=== PATIENT | female | born 1955 | race Caucasian/White ===

== ENCOUNTER → 2017-03-15 | Outpatient (CLI) | payer OTHER ==
[~2017-03-15] MED LIST: ATOR-54 PO; LEVO100T7 PO; LISI-461 PO; LORA0.5T12 PO; MELO15TA4 PO; PARO1TAB27 PO; TRIATAB3 PO; WARF6TAB PO; ZNTT/150 PO
[2017-03-15 12:54] LABS: CALCIUM 9.2 mg/dl (8.5-10.1)
[2017-03-15 13:09] LABS: ALT/SGPT 14 U/L (12-78); BLOOD UREA NITROGEN 16 mg/dl (7-18); BUN/CREATININE RATIO 13.3 (10-20); CARBON DIOXIDE 25 mmol/L (21-32); CHLORIDE 109 mmol/L (98-107); CHOLESTEROL 169 mg/dl (0-200); GLUCOSE 105 mg/dl (70-99); POTASSIUM 4.1 mmol/L (3.5-5.1); SODIUM 143 mmol/L (136-145); TRIGLYCERIDES 87 mg/dl (0-150); VERY LOW DENSITY LIPOPROT CALC 17 mg/dl
[2017-03-15 13:19] LABS: ALB/GLOB RATIO 0.9 (0.9-2); ALKALINE PHOSPHATASE 97 U/L (45-117); AST/SGOT 23 U/L (15-37); CHOLESTEROL/HDL RATIO 2.4; HDL CHOLESTEROL 71 mg/dl; LDL CHOLESTEROL CALCULATED 81 mg/dl
== END | disposition home or self-care (01) ==
LOC: C.LABBFT 08:12
PROVIDERS: ATTEND Physician Assistant Medical
DX: E03.9 Hypothyroidism, unspecified (principal); E78.5 Hyperlipidemia, unspecified

== ENCOUNTER → 2017-03-26 | Outpatient (CLI) | payer OTHER ==
--- NOTE | 2017-03-26 15:02 | DIAGNOSTIC IMAGING REPORT ---
ULTRASOUND OF THE THYROID GLAND CLINICAL HISTORY: Abnormal physical examination. COMPARISON STUDY: No priors. TECHNIQUE: Real-time, grayscale, and color flow sonography of the thyroid gland is performed utilizing a high-frequency linear transducer. Images are reviewed in the transverse and longitudinal planes. FINDINGS: Right lobe: The right lobe of the thyroid gland is atrophic and heterogeneous in echotexture, measuring 4.4 x 1.4 x 1.3 cm. Left lobe: The left lobe of the thyroid gland is atrophic and heterogeneous in echotexture, measuring 3.7 x 1.3 x 0.9 cm. Isthmus: The thyroid isthmus is normal in appearance and measures 0.2 cm in AP diameter. IMPRESSION: The thyroid gland is atrophic and heterogeneous in echotexture. This suggests the sequelae of previous thyroiditis. Correlation with clinical findings and serum thyroid function studies will be required. Electronically signed by: Pako Medrano M.D. 03/26/2017 3:00 PM Dictated Date/Time: 03/26/2017 2:59 PM
== END | disposition home or self-care (01) ==
LOC: C.ULTR 14:14
PROVIDERS: ATTEND Internal Medicine
DX: R94.6 Abnormal results of thyroid function studies (principal)

== ENCOUNTER → 2017-06-21 | Outpatient (CLI) | payer OTHER | END | disposition home or self-care (01) | LOC: C.PAPS 09:07 | PROVIDERS: ATTEND Obstetrics & Gynecology | DX: Z12.4 Encounter for screening for malignant neoplasm of cervix (principal) ==

== ENCOUNTER → 2017-10-11 | Outpatient (CLI) | payer OTHER ==
--- NOTE | 2017-10-12 15:07 | MAMMOGRAPHY REPORT ---
BILATERAL DIGITAL SCREENING MAMMOGRAM TOMOSYNTHESIS WITH CAD: 10/11/2017 CLINICAL HISTORY: Routine screening. Patient has no complaints. TECHNIQUE: Breast tomosynthesis in addition to standard 2D mammography was performed. Current study was also evaluated with a Computer Aided Detection (CAD) system. COMPARISON: Comparison is made to exams dated: 08/04/2015 mammogram, 10/15/2013 mammogram, 09/18/2012 mammogram, 09/14/2011 mammogram, 08/30/2010 mammogram, and 08/18/2009 mammogram - [facility]. BREAST COMPOSITION: There are scattered areas of fibroglandular density in both breasts. FINDINGS: No suspicious masses, calcifications, or areas of architectural distortion are noted in ei ther breast. There has been no significant interval change compared to prior exams. IMPRESSION: ACR BI-RADS CATEGORY 1: NEGATIVE There is no mammographic evidence of malignancy. A 1 year screening mammogram is recommended. The pa tient will receive written notification of the results. Approximately 10% of breast cancers are not detected with mammography. A negative mammographic report should not delay biopsy if a clinically suggestive mass is present. Marjan Carrillo M.D. /:10/11/2017 15:17:10 [employer]: Kera AYALA(Eder)(Freddy), [facility] letter sent: Normal 1/2 BI-RADS Code: ACR BI-RADS Category 1: Negative
== END | disposition home or self-care (01) ==
LOC: C.MAMM 14:48
PROVIDERS: ATTEND Obstetrics & Gynecology
DX: Z12.31 Encounter for screening mammogram for malignant neoplasm of breast (principal)

== ENCOUNTER → 2017-10-12 | Outpatient (CLI) | payer OTHER ==
[2017-10-12 12:21] LABS: BASO % 0.6 %; BASO ABS # 0.03 K/uL (0-0.2); EOS % 2.3 %; EOS ABS # 0.11 K/uL (0-0.5); HEMATOCRIT 41.6 % (37-47); HEMOGLOBIN 13.5 g/dL (12.0-16.0); LYMPH % 38.5 %; LYMPH ABS # 1.81 K/uL (1.2-3.4); MEAN CELL VOLUME 92.4 fL (80-100); MEAN CORPUSCULAR HGB CONC 32.5 g/dl (32-36); MEAN PLATELET VOLUME 11.2 fL (7.4-10.4); MONO % 8.7 %; MONO ABS # 0.41 K/uL (0.11-0.59); NEUT % 49.9 %; NEUT ABS # 2.34 K/uL (1.4-6.5); PLATELET COUNT 250 K/uL (130-400); RED CELL DISTRIBUTION WIDTH CV 13.5 % (11.5-14.5); RED CELL DISTRIBUTION WIDTH SD 45.7 fL (36.4-46.3)
[2017-10-12 12:33] LABS: BLOOD UREA NITROGEN 15 mg/dl (7-18); CALCIUM 9.3 mg/dl (8.5-10.1); CARBON DIOXIDE 29 mmol/L (21-32); CREATININE 1.12 mg/dl (0.60-1.20); GLUCOSE 92 mg/dl (70-99); SODIUM 140 mmol/L (136-145)
== END | disposition home or self-care (01) ==
LOC: C.LABBFT 07:51
PROVIDERS: ATTEND Internal Medicine
DX: I10 Essential (primary) hypertension (principal); R73.9 Hyperglycemia, unspecified; E03.9 Hypothyroidism, unspecified

== ENCOUNTER 2020-03-28 10:15 | Inpatient (IN) ==
[2020-03-28] MEDS ORDERED: HYDROmorphone INJ 0.5 MG/0.5 ML SYR IV STA ×3 (10:37→11:13)
[2020-03-28] MEDS ORDERED: ONDANSETRON INJ 2 MG/ML 2 ML VIAL IV STA (10:38)
--- NOTE | 2020-03-28 11:13 | XRay Report ---
RIGHT SHOULDER 2 VIEWS HISTORY: Right shoulder pain. trauma COMPARISON: None. FINDINGS: Anterior shoulder dislocation. Suspect a small Hill-Sachs impaction fracture. The glenoid a ppears intact. The right clavicle is also intact. Soft tissues are unremarkable. No radiopaque foreig n bodies. IMPRESSION: Right anterior shoulder dislocation. Probable small Hill-Sachs impaction fracture. ACT 112: Negative or not required by law. Electronically signed by: Sanjeev Stallings M.D. 03/28/2020 11:12 AM
[2020-03-28] MEDS ORDERED: LORazepam 0.5 MG/1 ML VIAL IV STA (11:18)
[2020-03-28] MEDS ORDERED: LORazepam 2 MG/4 ML VIAL ONE (11:19)
[2020-03-28 11:57] LABS: INR 1.6 (0.9-1.1); Prothrombin Time 16.3 Seconds (9.0-12.0)
[2020-03-28] MEDS ORDERED: HYDROmorphone INJ 1 MG/ML SYRINGE IV STA (12:19)
--- NOTE | 2020-03-28 12:22 | XRay Report ---
RIGHT ELBOW 3 VIEWS HISTORY: Right elbow pain. trauma COMPARISON: None. FINDINGS: There is no fracture or dislocation. Soft tissues are unremarkable. No elbow effusion. No r adiopaque foreign bodies. IMPRESSION: No fractures. ACT 112: Negative or not required by law. Electronically signed by: Sanjeev Stallings M.D. 03/28/2020 12:21 PM
--- NOTE | 2020-03-28 12:23 | XRay Report ---
XR shoulder RT min 2V routine CLINICAL HISTORY: Right shoulder dislocation. Follow-up. COMPARISON STUDY: Right shoulder 03/20/2020. FINDINGS: Persistent right anterior shoulder dislocation with a Hill-Sachs impaction fracture. The gl enoid appears intact. The right clavicle is also intact. IMPRESSION: No change in the right anterior shoulder dislocation with a Hill-Sachs impaction fractur e. ACT 112: Negative or not required by law. Electronically signed by: Sanjeev Stallings M.D. 03/28/2020 12:21 PM
--- NOTE | 2020-03-28 12:26 | XRay Report ---
XR ribs RT min 3V w CXR1V CLINICAL HISTORY: fall.right-sided rib pain. COMPARISON STUDY: Chest 9 20 x 13. FINDINGS: There is again noted a right anterior shoulder dislocation. The lungs are clear. No pleural effusions. No pneumothorax. The heart is normal in size. Mildly tortuous thoracic aorta. Nondisplace d right anterior sixth and seventh rib fractures. Right anterior shoulder dislocation again noted. IMPRESSION: 1. Nondisplaced right anterior sixth and seventh rib fractures. No pneumothorax. 2. Right anterior shoulder dislocation. ACT 112: Negative or not required by law. Electronically signed by: Sanjeev Stallings M.D. 03/28/2020 12:25 PM
--- NOTE | 2020-03-28 13:12 | XRay Report ---
XR shoulder RT min 2V routine CLINICAL HISTORY: dislocation reduction COMPARISON STUDY: Right shoulder 03/28/2020. FINDINGS: Persistent right anterior shoulder dislocation with a Hill-Sachs impaction fracture. The gl enoid appears intact. The right clavicle is also intact. IMPRESSION: No change in the right anterior shoulder dislocation with a Hill-Sachs impaction fractur e. ACT 112: Negative or not required by law. Electronically signed by: Sanjeev Stallings M.D. 03/28/2020 1:11 PM No change from XR shoulder RT min 2V routine with report dated 03/28/2020 12:21 PM.
--- NOTE | 2020-03-28 13:44 | CT Scan Report ---
RIGHT SHOULDER CT CT DOSE: 1026.51 mGy.cm HISTORY: R shoulder dislocation, unable to reduce. TECHNIQUE: Multiaxial CT images of the right shoulder were performed and reformatted in the sagittal and coronal plane without the use of contrast. A dose lowering technique was utilized adhering to th e principles of ALARA. COMPARISON: Right shoulder 03/20/2020. FINDINGS: Persistent right anterior shoulder dislocation with a Hill-Sachs impaction fracture. The an terior glenoid is located within the impaction fracture and likely inhibits reduction. A few tiny bon y fragments adjacent to the humeral head. Glenoid appears intact. No fractures within the right clavi sylvester. Small moderate lipohemarthrosis at the glenohumeral joint. A 3 mm nodule within the right upper lobe on image 255. IMPRESSION: 1. Persistent right anterior shoulder dislocation with a Hill-Sachs impaction fracture. The anterior glenoid is located within the impaction fracture and likely inhibit reduction. 2. Small to moderate lipohemarthrosis of the glenohumeral joint. 3. A 3 mm right upper lobe nodule. Please refer to below summary of Fleischner criteria recommendations for follow-up of incidental CT n odules (Vandana Wagner, Guidelines for management of small pulmonary nodules detected on CT scans: A sta tement from the Fleischner Society, Radiology 237: [phone].) SOLID NODULES Solitary nodule size: <6 mm * Low risk patients: no follow-up needed * high risk patients: optional CT at 12 months Solitary nodule size: 6-8 mm * Low risk patients: follow-up at 6-12 months, then consider further follow-up at 18-24 months * high risk patients: initial follow-up CT at 6-12 months and then at 18-24 months if no change Solitary nodule size: >8 mm * either low or high risk patients - consider follow-up CT at 3 months, and/or CT-PET, and/or biopsy Multiple nodules size: <6 mm * Low risk patients: no routine follow-up * high risk patients: optional CT at 12 months Multiple nodules size: 6-8 mm * Low risk patients: follow-up at 3-6 months, then consider further follow-up at 18-24 months * high risk patients: follow-up at 3-6 months, then at 18-24 months if no change Multiple nodules size: >8 mm * Low risk patients: follow-up at 3-6 months, then consider further follow-up at 18-24 months * high risk patients: follow-up at 3-6 months, then at 18-24 months if no change Note: newly detected indeterminate nodule in persons 35 years of age or older. * Low risk patients: minimal or absent history of smoking and/or other known risk factors * high risk patients: history of smoking or of other known risk factors (e.g. first degree relative with lung cancer, or exposure to asbestos, radon, uranium) * if a nodule up to 8 mm is partly solid or is ground glass further follow-up is required after 24 m onths to exclude possible slow growing adenocarcinoma (JOSE G) SUBSOLID NODULES Solitary pure ground-glass nodule * nodule size <6 mm - no CT follow-up required * nodule size >=6 mm - follow-up CT at 6-12 months, then every 2 years until 5 years Solitary part-solid nodule * nodule size <6 mm - no CT follow-up required * nodule size >=6 mm - follow-up CT at 3-6 months. If unchanged, and solid component remains <6 mm, then annual follow-up for 5 years Multiple subsolid nodules * nodule size <6 mm - follow-up CT at 3-6 months, consider further follow-up at 2 and 4 years if sta ble * nodule size >=6 mm - follow-up CT at 3-6 months, subsequent management based on the most suspiciou s nodule(s) ACT 112: Negative or not required by law. Electronically signed by: Sanjeev Stallings M.D. 03/28/2020 1:43 PM
[2020-03-28] MEDS ORDERED: HYDROmorphone INJ 0.5 MG/0.5 ML SYR IV PRN ×2 (14:02→20:34)
[2020-03-28] MEDS ORDERED: PROPOFOL IV EMULSION 10 MG/ML 20 ML VIAL IV STA (14:19)
[2020-03-28] MEDS ORDERED: SODIUM CHLORIDE 0.9% 1000ML 1,000 ML IV SCH (14:30)
--- NOTE | 2020-03-28 16:09 | Emergency Department Note ---
Pre Sedation Assessment Vital Signs Temp Pulse Resp BP Pulse Ox 03/28/20 14:36 96 03/28/20 14:00 93 03/28/20 13:01 58 L 98 03/28/20 13:00 60 15 143/86 H 96 03/28/20 12:34 125/71 97 03/28/20 12:26 65 19 03/28/20 11:30 56 L 18 95 03/28/20 11:26 55 L 10 L 03/28/20 11:25 55 L 11 L 131/74 93 03/28/20 10:26 58 L 24 160/112 H 98 03/28/20 10:20 36.9 C 87 36 H 97 Pre-Sedation Airway Assessment Smoking Status: Never smoker Notes The planned sedation has been discussed with the patient. Informed Consent was obtained. I have identified the patient, determined the appropriateness of sedation and have assessed the patient immediately prior to the procedure. All medicine(s) and interventions are by my order.
--- NOTE | 2020-03-28 16:12 | Emergency Department Note ---
Post Sedation Assessment Vital Signs Temp Pulse Resp BP Pulse Ox 03/28/20 14:36 96 03/28/20 14:00 93 03/28/20 13:01 58 L 98 03/28/20 13:00 60 15 143/86 H 96 03/28/20 12:34 125/71 97 03/28/20 12:26 65 19 03/28/20 11:30 56 L 18 95 03/28/20 11:26 55 L 10 L 03/28/20 11:25 55 L 11 L 131/74 93 03/28/20 10:26 58 L 24 160/112 H 98 03/28/20 10:20 36.9 C 87 36 H 97 Post Sedation Plan On clinical assessment, the patient appears to have tolerated the sedation without complications. Patient is recovering as anticipated. Patient will continue to be monitored by nursing and may be discharged when sedation discharge criteria are met per below protocol. Sedation Data Time Out Team Members Agree on the Following: Correct Patient, Correct Procedure, Correct Site-Side and Allergies Verified Site Marking Visible after Draping: Yes Team Agrees: Yes Time Out Performed Time: 15:47 Sedation Times Sedation Start Date: 03/28/20 Sedation Start Time: 15:47 Sedation End Date: 03/28/20 Sedation End Time: 16:00 Total Sedation Time: 13 Procedure Times Procedure Start Time:: 15:48 Procedure End Time: 15:52 Specimens Specimens Obtained: No
[2020-03-28] MEDS ORDERED: ACETAMINOPHEN 1000 MG/100 ML IV IV STA (16:50)
--- NOTE | 2020-03-28 16:58 | Emergency Department Note ---
ED Visit Note ED procedure: Closed reduction right shoulder, 1546 hrs Indication: Dislocation right shoulder Consent verbal and written consent obtained from the patient Anesthesia: Sedation provided by Dr. Granda see her accompanying documentation X-ray and CT of the shoulders were reviewed showing Hill-Sachs impaction fracture with persistent dislocation. Patient is neurovascular intact in the right upper extremity with no numbness and a good radial pulse. Patient is right-handed. Discussed with the patient proceed with close reduction with sedation in the emergency department discussed risks and benefits. Discussed possibility for neurovascular injury or fracture. Consent was completed. Sedation was performed Dr. Granda and see her accompanying documentation. Patient was sedated and had relaxation of muscles. Fracture was performed on the right upper extremity with some external rotation with a large audible clunk would appear to be some improvement of anatomical alignment. Patient's shoulder seem to be freely ranging at this point. Patient was placed into a sling. Sedation was completed. Radial pulse was intact. Sensation intact. Post sedation the patient still had pain in her right shoulder and repeat x-ray showed persistent dislocation. Dr. Granda discussed this with orthopedics for further care and likely OR reduction. : Anterior dislocation of right shoulder Qualifiers: Encounter type: initial encounter Qualified Code(s): S43.014A - Anterior dislocation of right humerus, initial encounter
--- NOTE | 2020-03-28 17:09 | XRay Report ---
XR shoulder RT min 2V routine CLINICAL HISTORY: post reduction w sedation COMPARISON STUDY: Right shoulder 03/28/2020. FINDINGS: Persistent right anterior shoulder dislocation with a Hill-Sachs impaction fracture. The gl enoid appears intact. The right clavicle is also intact. IMPRESSION: No change in the right anterior shoulder dislocation with a Hill-Sachs impaction fractur e. ACT 112: Negative or not required by law. Electronically signed by: Sanjeev Stallings M.D. 03/28/2020 5:08 PM No change from XR shoulder RT min 2V routine with report dated 03/28/2020 12:21 PM. No change from XR shoulder RT min 2V routine with report dated 03/28/2020 1:11 PM.
--- NOTE | 2020-03-28 17:47 | Emergency Department Note ---
History of Present Illness General Chief complaint: Shoulder Pain Stated complaint: FALL - RT SHOULDER INJURY Time Seen by Provider: 03/28/20 10:30 Source: patient and RN notes reviewed Mode of arrival: ambulatory Limitations: no limitations History of Present Illness Provider complaint: Right shoulder pain Maximum Pain Intensity: 4 This patient is a 64-year-old female who presents emergency department with complaints of right shoulder pain that happened after falling while mowing the grass. Patient states she fell onto an outstretched arm and heard a "crack." Patient states she felt pain immediately. She has very little movement of the right shoulder without significant discomfort. She states she can move her fingers and has sensation in the hand. She denies hitting her head or having neck pain. She does take Coumadin for history of PE. Home Medications Home Medications Medication Instructions Recorded Confirmed Type lancets 33 gauge #100 ea 03/06/19 10/30/19 Rx OneTouch Verio test strips #100 ea NS 07/02/19 10/30/19 Rx metformin 500 mg tablet,extended 500 mg PO BID 90 Days #180 tab 02/09/20 03/28/20 Rx release 24 hr Ranitidine 150mg Tablet 150 mg PO BID 03/28/20 03/28/20 History atorvastatin 20 mg PO QAM 03/28/20 03/28/20 History cholecalciferol (vitamin D3) 0 mcg PO QAM 03/28/20 03/28/20 History [Vitamin D3] fluoxetine 40 mg PO QAM 03/28/20 03/28/20 History glucos sul [id number]-Mn 1 cap PO QAM 03/28/20 03/28/20 History [Glucosamine Chondroitin] levothyroxine 88 mcg PO QAM 03/28/20 03/28/20 History lisinopril 20 mg PO QAM 03/28/20 03/28/20 History meloxicam 15 mg PO QAM 03/28/20 03/28/20 History multivitamin 1 tab PO QAM 03/28/20 03/28/20 History triamterene-hydrochlorothiazid 1 cap PO QAM 03/28/20 03/28/20 History warfarin 6 mg PO HS 03/28/20 03/28/20 History Allergies Allergy/AdvReac Type Severity Reaction Status Date / Time No Known Allergies Allergy Unknown Verified 03/28/20 11:33 Past Med/Surg History Medical History Anticoagulated on Coumadin (Acute) Anxiety (Acute) Arthritis (Acute) Colon polyps (Acute) Depression (Acute) Diverticulitis (Acute) Edema (Acute) Generalized osteoarthritis (Acute) Genital warts (Acute) Hematuria, microscopic (Acute) Hyperglycemia (Acute) Hyperlipidemia (Chronic) Hypothyroidism (Chronic) Insomnia (Acute) Internal hemorrhoids (Acute) Kidney stones (Acute) Lipoma of arm (Acute) Morbid obesity (Acute) Need for SBE (subacute bacterial endocarditis) prophylaxis (Acute) Prediabetes (Chronic) Surgical History History of appendectomy History of foot surgery History of tonsillectomy History of total knee arthroplasty Status post incision and drainage Family History Mother Diabetes Hypertension COPD (chronic obstructive pulmonary disease) Skin cancer Sister Diabetes Hypertension Skin cancer Father Skin cancer Grandfather Cardiac disorder Brother Skin cancer Denies family history of Ovarian cancer Breast cancer Colorectal cancer Social History Preferred Language: Cymro Communication Ability: Effective marital status: Feels Safe at Home: Yes Smoking Status: Never smoker Do You Dip or Chew Tobacco: No ; Second Hand Exposure: No ; Hx Alcohol Use: Yes Hx Substance Use: No Review of Systems See HPI for pertinent positives & negatives. and A total of 10 systems reviewed and were otherwise negative Physical Exam Vital Signs Vital Signs - 24 hr 03/28/20 10:20 03/28/20 10:26 03/28/20 11:25 Temperature 36.9 C Temperature Source Oral Pulse Rate 87 58 L 55 L Pulse Rate from SpO2 Sensor 57 L 54 L Pulse Rhythm Regular Respiratory Rate 36 H 24 11 L Respiratory Effort / Characteristics Moaning Respiratory Depth Shallow Respiratory Pattern Tachypnea Blood Pressure 160/112 H 131/74 Blood Pressure Mean 136 79 Pulse Oximetry 97 98 93 Oxygen Delivery Method Room Air Oxygen Flow Rate Sepsis Recent Fever Within 48 Hours No Sepsis Action Taken by Nursing No Action Required End-Tidal CO2 03/28/20 11:26 03/28/20 11:30 03/28/20 12:26 Temperature Temperature Source Pulse Rate 55 L 56 L 65 Pulse Rate from SpO2 Sensor 55 L 56 L Pulse Rhythm Respiratory Rate 10 L 18 19 Respiratory Effort / Characteristics Respiratory Depth Respiratory Pattern Blood Pressure Blood Pressure Mean Pulse Oximetry 95 Oxygen Delivery Method Room Air Oxygen Flow Rate Sepsis Recent Fever Within 48 Hours Sepsis Action Taken by Nursing End-Tidal CO2 03/28/20 12:30 03/28/20 12:34 03/28/20 13:00 Temperature Temperature Source Pulse Rate 60 Pulse Rate from SpO2 Sensor 65 64 60 Pulse Rhythm Respiratory Rate 15 Respiratory Effort / Characteristics Respiratory Depth Respiratory Pattern Blood Pressure 125/71 143/86 H Blood Pressure Mean 74 112 Pulse Oximetry 97 96 Oxygen Delivery Method Oxygen Flow Rate Sepsis Recent Fever Within 48 Hours Sepsis Action Taken by Nursing End-Tidal CO2 03/28/20 13:01 03/28/20 13:40 03/28/20 14:00 Temperature Temperature Source Pulse Rate 58 L Pulse Rate from SpO2 Sensor 58 L 60 63 Pulse Rhythm Respiratory Rate Respiratory Effort / Characteristics Respiratory Depth Respiratory Pattern Blood Pressure Blood Pressure Mean Pulse Oximetry 98 93 Oxygen Delivery Method Oxygen Flow Rate Sepsis Recent Fever Within 48 Hours Sepsis Action Taken by Nursing End-Tidal CO2 03/28/20 14:36 03/28/20 14:38 03/28/20 15:19 Temperature Temperature Source Pulse Rate 60 Pulse Rate from SpO2 Sensor 57 L 57 L Pulse Rhythm Respiratory Rate Respiratory Effort / Characteristics Respiratory Depth Respiratory Pattern Blood Pressure 138/75 Blood Pressure Mean 107 Pulse Oximetry 96 88 L Oxygen Delivery Method Nasal Cannula Room Air Oxygen Flow Rate 2 Sepsis Recent Fever Within 48 Hours Sepsis Action Taken by Nursing End-Tidal CO2 36 03/28/20 15:30 03/28/20 15:47 03/28/20 15:50 Temperature Temperature Source Pulse Rate 60 61 61 Pulse Rate from SpO2 Sensor 59 L 62 62 Pulse Rhythm Respiratory Rate Respiratory Effort / Characteristics Respiratory Depth Respiratory Pattern Blood Pressure 129/55 L 156/80 H 115/84 Blood Pressure Mean 95 92 95 Pulse Oximetry 97 97 85 L Oxygen Delivery Method Oxygen Flow Rate Sepsis Recent Fever Within 48 Hours Sepsis Action Taken by Nursing End-Tidal CO2 27 34 34 03/28/20 15:53 03/28/20 15:55 03/28/20 16:00 Temperature Temperature Source Pulse Rate 58 L 59 L 59 L Pulse Rate from SpO2 Sensor 58 L 59 L 61 Pulse Rhythm Respiratory Rate Respiratory Effort / Characteristics Respiratory Depth Respiratory Pattern Blood Pressure 133/85 149/78 H Blood Pressure Mean 106 83 Pulse Oximetry 99 100 100 Oxygen Delivery Method Oxygen Flow Rate Sepsis Recent Fever Within 48 Hours Sepsis Action Taken by Nursing End-Tidal CO2 11 6 39 03/28/20 16:01 03/28/20 16:05 03/28/20 16:10 Temperature Temperature Source Pulse Rate 60 60 64 Pulse Rate from SpO2 Sensor 59 L 60 68 Pulse Rhythm Respiratory Rate Respiratory Effort / Characteristics Respiratory Depth Respiratory Pattern Blood Pressure 147/96 H 135/83 140/76 Blood Pressure Mean 104 99 87 Pulse Oximetry 98 98 100 Oxygen Delivery Method Oxygen Flow Rate Sepsis Recent Fever Within 48 Hours Sepsis Action Taken by Nursing End-Tidal CO2 32 36 34 03/28/20 16:15 03/28/20 16:20 03/28/20 16:25 Temperature Temperature Source Pulse Rate 66 63 64 Pulse Rate from SpO2 Sensor 61 62 64 Pulse Rhythm Respiratory Rate Respiratory Effort / Characteristics Respiratory Depth Respiratory Pattern Blood Pressure 120/85 149/78 H 164/80 H Blood Pressure Mean 111 99 124 Pulse Oximetry 93 100 Oxygen Delivery Method Oxygen Flow Rate Sepsis Recent Fever Within 48 Hours Sepsis Action Taken by Nursing End-Tidal CO2 23 21 38 03/28/20 16:30 03/28/20 16:36 03/28/20 16:40 Temperature Temperature Source Pulse Rate 60 60 Pulse Rate from SpO2 Sensor 61 60 Pulse Rhythm Respiratory Rate Respiratory Effort / Characteristics Respiratory Depth Respiratory Pattern Blood Pressure 154/83 H 146/86 H 164/81 H Blood Pressure Mean 98 99 110 Pulse Oximetry 100 99 Oxygen Delivery Method Oxygen Flow Rate Sepsis Recent Fever Within 48 Hours Sepsis Action Taken by Nursing End-Tidal CO2 38 13 34 03/28/20 16:45 03/28/20 16:51 03/28/20 16:56 Temperature Temperature Source Pulse Rate 67 64 70 Pulse Rate from SpO2 Sensor Pulse Rhythm Respiratory Rate Respiratory Effort / Characteristics Respiratory Depth Respiratory Pattern Blood Pressure 146/79 H 116/73 152/74 H Blood Pressure Mean 98 84 85 Pulse Oximetry Oxygen Delivery Method Oxygen Flow Rate Sepsis Recent Fever Within 48 Hours Sepsis Action Taken by Nursing End-Tidal CO2 22 23 27 03/28/20 16:57 03/28/20 17:00 03/28/20 17:05 Temperature Temperature Source Pulse Rate 66 70 64 Pulse Rate from SpO2 Sensor Pulse Rhythm Respiratory Rate Respiratory Effort / Characteristics Respiratory Depth Respiratory Pattern Blood Pressure 152/74 H 151/79 H Blood Pressure Mean 85 92 Pulse Oximetry Oxygen Delivery Method Oxygen Flow Rate Sepsis Recent Fever Within 48 Hours Sepsis Action Taken by Nursing End-Tidal CO2 19 16 03/28/20 17:10 03/28/20 17:15 03/28/20 17:20 Temperature Temperature Source Pulse Rate 60 62 63 Pulse Rate from SpO2 Sensor Pulse Rhythm Respiratory Rate Respiratory Effort / Characteristics Respiratory Depth Respiratory Pattern Blood Pressure 142/78 H 142/113 H 130/59 L Blood Pressure Mean 89 119 76 Pulse Oximetry Oxygen Delivery Method Oxygen Flow Rate Sepsis Recent Fever Within 48 Hours Sepsis Action Taken by Nursing End-Tidal CO2 03/28/20 17:25 03/28/20 17:31 03/28/20 17:35 Temperature Temperature Source Pulse Rate 65 68 62 Pulse Rate from SpO2 Sensor Pulse Rhythm Respiratory Rate Respiratory Effort / Characteristics Respiratory Depth Respiratory Pattern Blood Pressure 129/56 L 99/57 L 122/63 Blood Pressure Mean 68 67 72 Pulse Oximetry Oxygen Delivery Method Oxygen Flow Rate Sepsis Recent Fever Within 48 Hours Sepsis Action Taken by Nursing End-Tidal CO2 03/28/20 17:40 03/28/20 17:46 03/28/20 17:51 Temperature Temperature Source Pulse Rate 58 L 66 62 Pulse Rate from SpO2 Sensor Pulse Rhythm Respiratory Rate Respiratory Effort / Characteristics Respiratory Depth Respiratory Pattern Blood Pressure 118/61 102/60 135/61 Blood Pressure Mean 83 69 88 Pulse Oximetry Oxygen Delivery Method Oxygen Flow Rate Sepsis Recent Fever Within 48 Hours Sepsis Action Taken by Nursing End-Tidal CO2 Vital signs reviewed. General: Generally well-appearing 64-year-old female, in significant distress. HEENT: No scleral icterus, PERRLA, neck supple. Atraumatic. Cardiovascular: Regular rate and rhythm, no extra sounds. Pulmonary: Clear to auscultation bilaterally, normal work of breathing. Abdomen: Soft, nontender, nondistended, positive bowel sounds. Musculoskeletal: Obese upper extremities however tender to palpation over the right shoulder with apparent acromial humeral defect.. Neurologic: Patient awake alert and oriented x 3 Skin: Warm, dry, no rash Procedures Orthopedic Joint Reduction Joint #1: Time Out Performed: Yes Side: right Joint Reduction Location: shoulder Analgesia: none (Dilaudid) Shoulder Technique Used (if applicable): scapula manipulation Technique used: direct manipulation Post-reduction neuro exam: intact Post-reduction vascular: intact Post Reduction X-Ray Obtained: Yes Post Reduction X-Ray Results: not reduced Patient Tolerated Procedure: well Joint #2: Time Out Performed: Yes Side: right Joint Reduction Location: shoulder Analgesia: none (Dilaudid) Shoulder Technique Used (if applicable): scapula manipulation Technique used: direct manipulation Post-reduction neuro exam: intact Post-reduction vascular: intact Post Reduction X-Ray Obtained: Yes Post Reduction X-Ray Results: not reduced Procedural Sedation Indication: fracture/dislocation reduction ASA Class: II Time of Last PO Intake: 09:00 Preparation: bank sales and service manager applied, pulse oximeter, capnometry used, supplemental O2 applied, suction/airway equipment at bedside and IV secured IV Propofol dose (mg): 75 Patient Tolerated Procedure: well Complications: hypoventilation Interventions: oxygen applied and airway repositioned Course Administered Medications Hydromorphone HCl (Dilaudid) 0.5 mg IV Q15M PRN PRN Reason: Pain Stop: 04/11/20 14:01 Last Admin: 03/28/20 14:13 Dose: 0.5 mg Documented by: [id number] Sodium Chloride (Nss 1000ml) 1,000 mls @ 100 mls/hr IV .Q10H VERENICE Stop: 03/29/20 00:29 Last Admin: 03/28/20 16:02 Dose: 100 mls/hr Documented by: [id number] Discontinued Medications Acetaminophen (Ofirmev) 1,000 mg IV NOW STA Stop: 03/28/20 16:51 Last Admin: 03/28/20 17:13 Dose: 1,000 mg Documented by: [id number] Hydromorphone HCl (Dilaudid) 0.5 mg IV NOW STA Stop: 03/28/20 10:38 Last Admin: 03/28/20 11:00 Dose: 0.5 mg Documented by: [id number] Hydromorphone HCl (Dilaudid) 0.5 mg IV NOW STA Stop: 03/28/20 11:08 Last Admin: 03/28/20 11:28 Dose: 0.5 mg Documented by: [id number] Hydromorphone HCl (Dilaudid) 0.5 mg IV NOW STA Stop: 03/28/20 11:14 Last Admin: 03/28/20 11:28 Dose: 0.5 mg Documented by: [id number] Hydromorphone HCl (Dilaudid) 1 mg IV NOW STA Stop: 03/28/20 12:20 Last Admin: 03/28/20 12:24 Dose: 1 mg Documented by: [id number] Lorazepam (Ativan) 0.5 mg in 1 mls @ 1 mls/min IV NOW STA Stop: 03/28/20 11:19 Last Admin: 03/28/20 11:28 Dose: 1 mls/min Documented by: [id number] Lorazepam (Ativan) Confirm Administered Dose 2 mg .ROUTE .STK-MED ONE Stop: 03/28/20 11:20 Last Admin: 03/28/20 11:29 Dose: Not Given Documented by: [id number] Ondansetron HCl (Zofran) 4 mg IV NOW STA Stop: 03/28/20 10:39 Last Admin: 03/28/20 11:00 Dose: 4 mg Documented by: [id number] Propofol (Diprivan) 200 mg IV NOW Stop: 03/28/20 14:20 Last Admin: 03/28/20 16:01 Dose: 75 mg Documented by: [id number] Cosigned by: [id number] Medical Decision Making Differential Diagnosis Differential diagnosis: Etiologies such as fracture, dislocation, neurovascular compromise, compartment syndrome, soft tissue injury, as well as others were entertained. Home Medications Current Medication List: was personally reviewed by me Laboratory Data Attestation: I reviewed the patient's lab results. Lab Results 03/28/20 Range/Units 11:37 PT 16.3 H (9.0-12.0) Seconds INR 1.6 H (0.9-1.1) Imaging Data Radiologist's Impression: RIGHT SHOULDER 2 VIEWS HISTORY: Right shoulder pain. trauma COMPARISON: None. FINDINGS: Anterior shoulder dislocation. Suspect a small Hill-Sachs impaction fracture. The glenoid appears intact. The right clavicle is also intact. Soft tissues are unremarkable. No radiopaque foreign bodies. IMPRESSION: Right anterior shoulder dislocation. Probable small Hill-Sachs impaction fracture. ACT 112: Negative or not required by law. Electronically signed by: Sanjeev Stallings M.D. 03/28/2020 11:12 AM Dictated: 03/28/20 1111 Transcribed: 03/28/20 1111 XR ribs RT min 3V w [id number] CLINICAL HISTORY: fall.right-sided rib pain. COMPARISON STUDY: Chest 9 20 x 13. FINDINGS: There is again noted a right anterior shoulder dislocation. The lungs are clear. No pleural effusions. No pneumothorax. The heart is normal in size. Mildly tortuous thoracic aorta. Nondisplaced right anterior sixth and seventh rib fractures. Right anterior shoulder dislocation again noted. IMPRESSION: 1. Nondisplaced right anterior sixth and seventh rib fractures. No pneumothorax. 2. Right anterior shoulder dislocation. ACT 112: Negative or not required by law. Electronically signed by: Sanjeev Stallings M.D. 03/28/2020 12:25 PM Dictated: 03/28/20 1222 Transcribed: 03/28/20 1222 XR shoulder RT min 2V routine CLINICAL HISTORY: Right shoulder dislocation. Follow-up. COMPARISON STUDY: Right shoulder 03/20/2020. FINDINGS: Persistent right anterior shoulder dislocation with a Hill-Sachs impaction fracture. The glenoid appears intact. The right clavicle is also intact. IMPRESSION: No change in the right anterior shoulder dislocation with a Hill- Sachs impaction fracture. ACT 112: Negative or not required by law. Electronically signed by: Sanjeev Stallings M.D. 03/28/2020 12:21 PM Dictated: 03/28/20 1221 Transcribed: 03/28/20 1221 RIGHT ELBOW 3 VIEWS HISTORY: Right elbow pain. trauma COMPARISON: None. FINDINGS: There is no fracture or dislocation. Soft tissues are unremarkable. No elbow effusion. No radiopaque foreign bodies. IMPRESSION: No fractures. ACT 112: Negative or not required by law. Electronically signed by: Sanjeev Stallings M.D. 03/28/2020 12:21 PM Dictated: 03/28/20 1220 Transcribed: 03/28/20 1220 XR shoulder RT min 2V routine CLINICAL HISTORY: dislocation reduction COMPARISON STUDY: Right shoulder 03/28/2020. FINDINGS: Persistent right anterior shoulder dislocation with a Hill-Sachs impaction fracture. The glenoid appears intact. The right clavicle is also intact. IMPRESSION: No change in the right anterior shoulder dislocation with a Hill- Sachs impaction fracture. ACT 112: Negative or not required by law. Electronically signed by: Sanjeev Stallings M.D. 03/28/2020 1:11 PM No change from XR shoulder RT min 2V routine with report dated 03/28/2020 12:21 PM. Dictated: 03/28/20 1310 Transcribed: 03/28/[address] DOSE: 1026.51 mGy.cm HISTORY: R shoulder dislocation, unable to reduce. TECHNIQUE: Multiaxial CT images of the right shoulder were performed and reformatted in the sagittal and coronal plane without the use of contrast. A dose lowering technique was utilized adhering to the principles of ALARA. COMPARISON: Right shoulder 03/20/2020. FINDINGS: Persistent right anterior shoulder dislocation with a Hill-Sachs impaction fracture. The anterior glenoid is located within the impaction fracture and likely inhibits reduction. A few tiny bony fragments adjacent to the humeral head. Glenoid appears intact. No fractures within the right clavicle. Small moderate lipohemarthrosis at the glenohumeral joint. A 3 mm nodule within the right upper lobe on image 255. IMPRESSION: 1. Persistent right anterior shoulder dislocation with a Hill-Sachs impaction fracture. The anterior glenoid is located within the impaction fracture and likely inhibit reduction. 2. Small to moderate lipohemarthrosis of the glenohumeral joint. 3. A 3 mm right upper lobe nodule. ACT 112: Negative or not required by law. XR shoulder RT min 2V routine CLINICAL HISTORY: post reduction w sedation COMPARISON STUDY: Right shoulder 03/28/2020. FINDINGS: Persistent right anterior shoulder dislocation with a Hill-Sachs impaction fracture. The glenoid appears intact. The right clavicle is also intact. IMPRESSION: No change in the right anterior shoulder dislocation with a Hill- Sachs impaction fracture. ACT 112: Negative or not required by law. Electronically signed by: Sanjeev Stallings M.D. 03/28/2020 5:08 PM No change from XR shoulder RT min 2V routine with report dated 03/28/2020 12:21 PM. No change from XR shoulder RT min 2V routine with report dated 03/28/2020 1:11 PM. Dictated: 03/28/201706 Transcribed: 03/28/201706 ECG Data Attestation: I personally reviewed and interpreted this ECG as follows: Indication: + other (presedation) Rate (beats per minute): 63 Rhythm: + normal sinus ECG Intervals/blocks: + Prolonged QT (QTc 483) ECG Findings: no Q waves (Septal) Blood Pressure Blood Pressure Findings: Normal blood pressure Blood Pressure Disposition: Referred to patients primary care provider MDM Narrative This patient was evaluated and appeared to be in significant discomfort. IV access was obtained and laboratory work was drawn. An order for cardiac monitoring was placed and the patient is found to be in a normal sinus rhythm at 62 bpm. Patient was medicated with IV Dilaudid and Zofran for her discomfort. Patient was placed in the prone position with the right arm over the bed. Using scapular manipulation and downward traction, a reduction attempt was made and unsuccessful. Additional x-rays of the elbow and right ribs were obtained as the patient continued complaint of discomfort. There is no evidence of fracture other than the impaction/Hill-Sachs deformity. An additional attempt at reduction was made as the patient had eaten at 9 AM. Additional reduction attempts were also unsuccessful despite additional pain medication. She did also receive IV Ativan for muscular relaxation. A CT scan of the shoulder was performed and is read as above. I did discuss the case with Dr. Rust of orthopedic surgery who reviewed the CT and felt that additional reduction attempt could be made. Finally the patient was consented for conscious sedation. Dr. Vidales was at the bedside for the shoulder reduction, please see his notes for further detail. The patient tolerated the procedure well however the x-ray again reveals the shoulder is dislocated. Dr. Rust was notified about the unsuccessful attempt despite the full range of motion after each reduction. I suspect the patient's obese arms inhibit the exam and wonder if there is a soft tissue injury impeding the reduction. Nonetheless the patient will be going to the operating room for definitive care. She is aware of this plan and agrees. Impression & Plan Anterior dislocation of right shoulder Discharge Plan Visit Data Chief Complaint: Shoulder Pain Stated Complaint: FALL - RT SHOULDER INJURY ED Provider: Jenna Granda Discharge Problem: Anterior dislocation of right shoulder Forms Stand Alone Forms: Anesthesia/Sedation, Adult, [facility] Prescriptions Prescriptions: No Action (DME) lancets [OneTouch Delica Lancets] 33 gauge misc See Dose Instructions .ROUTE .MEDSUPPLY Qty: 100 RF: 0 (DME) OneTouch Verio test strips strip See Dose Instructions .ROUTE .MEDSUPPLY Qty: 100 RF: 3 metformin 500 mg tablet extended release 24 hr 500 mg PO BID 90 Days Qty: 180 RF: 3 multivitamin Tablet 1 tab PO QAM RF: 0 cholecalciferol (vitamin D3) [Vitamin D3] 25 mcg (1,000 unit) Tablet 0 mcg PO QAM RF: 0 Glucosamine Chondroitin 550-30-1 mg Capsule 1 cap PO QAM RF: 0 Ranitidine 150mg Tablet 150 mg PO BID RF: 0 fluoxetine 40 mg capsule 40 mg PO QAM RF: 0 atorvastatin 20 mg tablet 20 mg PO QAM RF: 0 meloxicam 15 mg tablet 15 mg PO QAM RF: 0 lisinopril 20 mg tablet 20 mg PO QAM RF: 0 triamterene-hydrochlorothiazid 37.5-25 mg capsule 1 cap PO QAM RF: 0 levothyroxine 88 mcg tablet 88 mcg PO QAM RF: 0 warfarin 6 mg tablet 6 mg PO HS RF: 0 Referrals Referrals: Brice Ken MD [Primary Care Provider] - Discharge Problem: Anterior dislocation of right shoulder Qualifiers: Encounter type: initial encounter Qualified Code(s): S43.014A - Anterior dislocation of right humerus, initial encounter
--- NOTE | 2020-03-28 17:56 | History & Physical Report ---
Date of Service March 28, 2020 Assessment & Plan (1) Dislocation of right shoulder joint: We will take her to the operating room and do a closed reduction of the right shoulder under general anesthesia. She understands the risks, benefits, and alternatives to procedures like to proceed. The decision was made for the procedure. Postoperatively, we will keep her overnight in the hospital for postoperative medical management. We will plan to discharge her to home with a sling tomorrow. Present on Admission?: Yes History of Present Illness Chief Complaint: Right shoulder dislocation Primary Care Provider: Faisal Ken MD Janie is a pleasant 64-year-old female who was mowing her grass earlier today. She tripped and fell, sustaining a right shoulder anterior dislocation. She came to the emergency room. The emergency room physician had several attempts to reduce her right shoulder but was unable to get it reduced. CT scan of the right shoulder did show a Hill-Sachs deformity with a slight impaction of the anterior glenoid. After failing multiple attempts at reduction, orthopedics was consulted for a closed reduction in the operating room. Allergies Allergy/AdvReac Type Severity Reaction Status Date / Time No Known Allergies Allergy Unknown Verified 03/28/20 11:33 Home Medications Home Medications Medication Instructions Recorded Confirmed Type lancets 33 gauge #100 ea 03/06/19 10/30/19 Rx OneTouch Verio test strips #100 ea NS 07/02/19 10/30/19 Rx metformin 500 mg tablet,extended 500 mg PO BID 90 Days #180 tab 02/09/2003/02 Rx release 24 hr Ranitidine 150mg Tablet 150 mg PO BID 03/28/20 03/28/20 History atorvastatin 20 mg PO QAM 03/28/20 03/28/20 History cholecalciferol (vitamin D3) 0 mcg PO QAM 03/28/20 03/28/20 History [Vitamin D3] fluoxetine 40 mg PO QAM 03/28/20 03/28/20 History glucos sul [id number]-[id number]-C-Mn 1 cap PO QAM 03/28/20 03/28/20 History [Glucosamine Chondroitin] levothyroxine 88 mcg PO QAM 03/28/20 03/28/20 History lisinopril 20 mg PO QAM 03/28/20 03/28/20 History meloxicam 15 mg PO QAM 03/28/20 03/28/20 History multivitamin 1 tab PO QAM 03/28/20 03/28/20 History triamterene-hydrochlorothiazid 1 cap PO QAM 03/28/20 03/28/20 History warfarin 6 mg PO HS 03/28/20 03/28/20 History Past Med/Surg History Medical History Anticoagulated on Coumadin (Acute) Anxiety (Acute) Arthritis (Acute) Colon polyps (Acute) Depression (Acute) Diverticulitis (Acute) Edema (Acute) Generalized osteoarthritis (Acute) Genital warts (Acute) Hematuria, microscopic (Acute) Hyperglycemia (Acute) Hyperlipidemia (Chronic) Hypothyroidism (Chronic) Insomnia (Acute) Internal hemorrhoids (Acute) Kidney stones (Acute) Lipoma of arm (Acute) Morbid obesity (Acute) Need for SBE (subacute bacterial endocarditis) prophylaxis (Acute) Prediabetes (Chronic) Surgical History History of appendectomy History of foot surgery History of tonsillectomy History of total knee arthroplasty Status post incision and drainage Family History Mother Diabetes Hypertension COPD (chronic obstructive pulmonary disease) Skin cancer Sister Diabetes Hypertension Skin cancer Father Skin cancer Grandfather Cardiac disorder Brother Skin cancer Denies family history of Ovarian cancer Breast cancer Colorectal cancer Social History Preferred Language: Estonian Communication Ability: Effective marital status: Feels Safe at Home: Yes Smoking Status: Never smoker Second Hand Exposure: No ; Hx Alcohol Use: Yes Hx Substance Use: No Review of Systems Review of Systems: All systems reviewed & are unremarkable except as noted in HPI & below Physical Exam Constitutional: WD/WN, vitals as above Eyes: PERRL, conjunctivae normal, anicteric sclerae ENMT: external ear and nose normal, oropharynx normal Neck: trachea midline, no thyromegaly Respiratory: normal respiratory effort Cardiovascular: RRR, no murmur, no edema Gastrointestinal (Abdomen): normal bowel sounds, soft, nontender, no hepatosplenomegaly Musculoskeletal: On physical examination of her right shoulder, there is a gross deformity. She is unable to move her right shoulder. Her radial, median, and ulnar nerves are checked intact at her wrist. Her axillary nerve was not checked yet. Psychiatric: A+Ox3, euthymic affect Results & Data Results & Data ([facility]) Vital Signs (Past 12 Hours) Vital Signs Temp Pulse Resp BP Pulse Ox 03/28/20 14:36 96 03/28/20 14:00 93 03/28/20 13:01 58 L 98 03/28/20 13:00 60 15 143/86 H 96 03/28/20 12:34 125/71 97 03/28/20 12:26 65 19 03/28/20 11:30 56 L 18 95 03/28/20 11:26 55 L 10 L 03/28/20 11:25 55 L 11 L 131/74 93 03/28/20 10:26 58 L 24 160/112 H 98 03/28/20 10:20 36.9 C 87 36 H 97 Diagnostic Findings X-rays and CT scan of the right shoulder do show an anterior inferior dislocation of the right humerus. There is a Hill-Sachs deformity and an impaction with the anterior glenoid. PG Care Time/CCT Total # of Minutes Spent Total Time Spent with Patient: Total time spent is greater than 50% in coordination of care (as documented) at patient's floor/unit and/or counseling patient: Coding Level of Care Code 38178 Initial Inpt Care Lvl 3 Diagnoses Dislocation of right shoulder joint S43.004A
--- NOTE | 2020-03-28 17:58 | Anesthesiology Consultation ---
Date of Service March 28, 2020 Assessment & Plan (1) Encounter for pre-operative examination: Chart Review Chart Review: Acceptable Risk for Surgery and Patient NOT seen in Pre Admission Testing Consults Requested none History Surgery Operation Date: 03/28/20 18:30 Proposed Procedures p Closed Reduction Extremity - Rigo Rust DO Height/Weight Height: 5 ft 8 in Weight: 104.6 kg Allergies Allergy/AdvReac Type Severity Reaction Status Date / Time No Known Allergies Allergy Unknown Verified 03/28/20 11:33 Medications Home Medications Medication Instructions Recorded Confirmed Last Taken lancets 33 gauge #100 ea 03/06/19 10/30/19 Unknown OneTouch Verio test strips #100 ea NS 07/02/19 10/30/19 Unknown metformin 500 mg tablet,extended 500 mg PO BID 90 Days #180 tab 02/09/20 03/28/20 03/28/20 release 24 hr Ranitidine 150mg Tablet 150 mg PO BID 03/28/20 03/28/20 03/28/20 atorvastatin 20 mg PO QAM 03/28/20 03/28/20 03/28/20 cholecalciferol (vitamin D3) 0 mcg PO QAM 03/28/20 03/28/20 03/28/20 [Vitamin D3] fluoxetine 40 mg PO QAM 03/28/20 03/28/20 03/28/[address]os sul 4ZSt-dpi-pyzre-C-Mn 1 cap PO QAM 03/28/20 03/28/20 03/28/20 [Glucosamine Chondroitin] levothyroxine 88 mcg PO QAM 03/28/20 03/28/20 03/28/20 lisinopril 20 mg PO QAM 03/28/20 03/28/20 03/28/20 meloxicam 15 mg PO QAM 03/28/20 03/28/20 03/28/20 multivitamin 1 tab PO QAM 03/28/20 03/28/20 03/28/20 triamterene-hydrochlorothiazid 1 cap PO QAM 03/28/20 03/28/20 03/28/20 warfarin 6 mg PO HS 03/28/20 03/28/20 03/27/20 Active Medications Generic Name Dose Route Start Last Admin Trade Name Freq PRN Reason Stop Dose Admin Hydromorphone HCl 0.5 mg 03/28/20 14:02 03/28/20 14:13 Dilaudid IV 04/11/20 14:01 0.5 mg Q15M PRN Administration Pain Sodium Chloride 1,000 mls @ 100 mls/hr 03/28/20 14:30 03/28/20 16:02 Nss 1000ml IV 03/29/20 00:29 100 mls/hr .Q10H VERENICE Administration Past Medical History Medical History Anticoagulated on Coumadin (Acute) Anxiety (Acute) Arthritis (Acute) Colon polyps (Acute) Depression (Acute) Diverticulitis (Acute) Edema (Acute) Generalized osteoarthritis (Acute) Genital warts (Acute) Hematuria, microscopic (Acute) Hyperglycemia (Acute) Hyperlipidemia (Chronic) Hypothyroidism (Chronic) Insomnia (Acute) Internal hemorrhoids (Acute) Kidney stones (Acute) Lipoma of arm (Acute) Morbid obesity (Acute) Need for SBE (subacute bacterial endocarditis) prophylaxis (Acute) Prediabetes (Chronic) Exercise / Class Metabolic Activity II 4-5 Yardwork/Stairs/Walk up hill Past Family History Family History Mother Diabetes Hypertension COPD (chronic obstructive pulmonary disease) Skin cancer Sister Diabetes Hypertension Skin cancer Father Skin cancer Grandfather Cardiac disorder Brother Skin cancer Denies family history of Ovarian cancer Breast cancer Colorectal cancer Past Surgical History Surgical History History of appendectomy History of foot surgery History of tonsillectomy History of total knee arthroplasty Status post incision and drainage Past Anesthesia History No Hx of Anesthesia Complications and No Family Hx of Anesthesia Complications History of PONV No Hx of PONV and No Hx of Motion Sickness Social History Smoking Status: Never smoker Do You Dip or Chew Tobacco: No Hx Alcohol Use: Yes Hx Substance Use: No substance use type: does not use Physical Exam Vital Signs Last Vital Signs Temp 36.9 C 03/28/20 10:20 Pulse 61 03/28/20 18:30 Resp 15 03/28/20 13:00 BP 141/83 H 03/28/20 18:30 Pulse Ox 99 03/28/20 16:36 Testing Laboratory Results 03/28/20 18:33 PT 16.3 Seconds (9.0-12.0) H 03/28/20 11:37 INR 1.6 (0.9-1.1) H 03/28/20 11:37 Electrocardiogram Date: 03/28/20 Findings: + NSR @ (63) Normal sinus rhythm Incomplete right bundle branch block Septal infarct , age undetermined Abnormal ECG When compared with ECG of 02-OCT-2014 11:34, Septal infarct is now Present Chest X-Ray Date: 03/28/20 XR ribs RT min 3V w CXR1V CLINICAL HISTORY: fall.right-sided rib pain. COMPARISON STUDY: Chest 9 20 x 13. FINDINGS: There is again noted a right anterior shoulder dislocation. The lungs are clear. No pleural effusions. No pneumothorax. The heart is normal in size. Mildly tortuous thoracic aorta. Nondisplaced right anterior sixth and seventh rib fractures. Right anterior shoulder dislocation again noted. IMPRESSION: 1. Nondisplaced right anterior sixth and seventh rib fractures. No pneumothorax. 2. Right anterior shoulder dislocation.
[2020-03-28] MEDS ORDERED: PROPOFOL IV EMULSION 10 MG/ML 20 ML VIAL IV ONE (18:38)
[2020-03-28] MEDS ORDERED: MIDAZOLAM HCL 1 MG/ML 2ML VIAL ONE (18:38)
[2020-03-28] MEDS ORDERED: SUCCINYLCHOLINE 100MG/5ML SYR IV ONE (18:38)
[2020-03-28 18:46] LABS: Hematocrit (blood only) 41.5 % (37-47); Hemoglobin 12.6 g/dL (12.0-16.0); Immature Granulocytes # (auto) 0.02 K/uL (0.00-0.02); Immature Granulocytes % (auto) 0.1 %; Lymphocytes % (auto) 8.1 %; Mean Corpuscular Hemoglobin 29.8 pg (25-34); Mean Corpuscular Hgb Conc 30.4 g/dL (32-36); Mean Corpuscular Volume 98.1 fL (80-100); Mean Platelet Volume 9.9 fL (7.4-10.4); Monocytes # (auto) 0.74 K/uL (0.11-0.59); Monocytes % (auto) 5.5 %; Neutrophils % (auto) 86.3 %; Platelet Count 229 K/uL (130-400); RDW Coefficient of Variation 13.5 % (11.5-14.5); RDW Standard Deviation 48.4 fL (36.4-46.3); Red Blood Count 4.23 M/uL (4.2-5.4); White Blood Count 13.56 K/uL (4.8-10.8)
[2020-03-28] MEDS ORDERED: ONDANSETRON INJ 2 MG/ML 2 ML VIAL IV PRN (18:58)
[2020-03-28] MEDS ORDERED: ePHEDrine sulfate 50 MG/ML AMP IV PRN (18:58)
[2020-03-28] MEDS ORDERED: fentaNYL citrate 100 MCG/2 ML VIAL IV PRN (18:58)
[2020-03-28] MEDS ORDERED: ATROPINE SULFATE 0.1 MG/ML 10ML SYR IV PRN (18:58)
[2020-03-28] MEDS ORDERED: HYDROmorphone INJ 1 MG/ML SYRINGE IV PRN (18:58)
[2020-03-28 19:02] LABS: Albumin Level 3.3 gm/dl (3.4-5.0); BUN Creatinine Ratio 16.4 (10-20); Creatinine Clr Calc Pharmacy 63.4 ml/min; Est GFR (African American) 59.7; Est GFR (Non-African American) 51.5; Potassium 4.4 mmol/L (3.5-5.1)
[2020-03-28 19:05] LABS: Albumin Globulin Ratio 0.9 (0.9-2); Bilirubin,Total 0.5 mg/dl (0.2-1); Globulin 3.8 gm/dl (2.5-4.0); Total Protein 7.1 gm/dl (6.4-8.2)
--- NOTE | 2020-03-28 19:29 | Operative Report ---
PG Post Operative Report Pre & Post Diagnosis Operation Date: 03/28/20 18:30 Right anterior inferior shoulder dislocation Right anterior-inferior shoulder dislocation I identified the patient and participated in the time-out.: Yes Procedure Operation Date: 03/28/20 18:30 Close reduction of the right shoulder Surgeon Rigo Rust DO [employer] Kun Fofana PAC Estimated Blood Loss 0 Findings Consistent with Post-Op Diagnosis Specimens None Complications none Disposition Disposition: Recovery Room Indications Janie is a pleasant 64-year-old female who was mowing her lawn earlier today when she fell and dislocated her right shoulder. She came to the emergency room. X-rays and CT scan demonstrated an anterior inferior shoulder dislocation with some impaction and Hill-Sachs deformity. After multiple attempts for reduction in the emergency room, orthopedics was consulted. The decision was made to take her to the operating room for a closed reduction of her right shoulder. Description of Procedure On March 28, 2020 she was seen in the preoperative holding area and the operative extremity was identified and signed. She was taken back to the operating room and laid on table supine position. She was put under a MAC anesthesia.A timeout was done and the patient and the operative extremity was properly identified. A gentle manipulation was done of the right shoulder and I was able to get a nice closed reduction. The shoulder was brought through a full range of motion felt to be stable. Fluoroscopic images confirmed the reduction in the stability. She was then placed in an arm sling. She was then taken to the postanesthesia care unit in stable condition. She tolerated the procedure well. I attest to the content of the Intraoperative Record and any orders documented therein. Any exceptions are noted below.
--- NOTE | 2020-03-28 19:53 | Anesthesiology Progress Note ---
Date of Service March 28, 2020 Anesthesia Post Procedure Vital Signs Vital Signs: Temp Pulse Pulse Resp BP BP Pulse Ox 03/28/20 19:50 53 L 14 105/55 L 99 03/28/20 19:43 36.1 C L 57 L 20 109/58 L 98 03/28/20 18:30 61 141/83 H 03/28/20 18:01 58 L 144/59 H 03/28/20 17:51 62 135/61 03/28/20 17:46 66 102/60 03/28/20 17:40 58 L 118/61 03/28/20 17:35 62 122/63 03/28/20 17:31 68 99/57 L 03/28/20 17:25 65 129/56 L 03/28/20 17:20 63 130/59 L 03/28/20 17:15 62 142/113 H 03/28/20 17:10 60 142/78 H 03/28/20 17:05 64 151/79 H 03/28/20 17:00 70 03/28/20 16:57 66 152/74 H 03/28/20 16:56 70 152/74 H 03/28/20 16:51 64 116/73 03/28/20 16:45 67 146/79 H 03/28/20 16:40 164/81 H 03/28/20 16:36 60 146/86 H 99 03/28/20 16:30 60 154/83 H 100 03/28/20 16:25 64 164/80 H 03/28/20 16:20 63 149/78 H 100 03/28/20 16:15 66 120/85 93 03/28/20 16:10 64 140/76 100 03/28/20 16:05 60 135/83 98 03/28/20 16:01 60 147/96 H 98 03/28/20 16:00 59 L 100 03/28/20 15:55 59 L 149/78 H 100 03/28/20 15:53 58 L 133/85 99 03/28/20 15:50 61 115/84 85 L 03/28/20 15:47 61 156/80 H 97 03/28/20 15:30 60 129/55 L 97 03/28/20 15:19 60 138/75 88 L 03/28/20 14:36 96 03/28/20 14:00 93 06/28/20 13:01 58 L 98 03/28/20 13:00 60 15 143/86 H 96 03/28/20 12:34 125/71 97 03/28/20 12:26 65 19 03/28/20 11:30 56 L 18 95 03/28/20 11:26 55 L 10 L 03/28/20 11:25 55 L 11 L 131/74 93 03/28/20 10:26 58 L 24 160/112 H 98 03/28/20 10:20 36.9 C 87 36 H 97 Pain Intensity Right Shoulder: Pain Intensity: 9 Transfer of Care Handoff Completed per policy Notes Mental Status: alert / awake / arousable and participated in evaluation Patient Amnestic to Procedure: Yes Nausea / Vomiting: adequately controlled Pain: adequately controlled Airway Patency, RR, SpO2: stable & adequate BP & HR: stable & adequate Hydration State: stable & adequate Anesthetic Complications: no major complications apparent and Pt Satisfied with anesthetic care
--- NOTE | 2020-03-28 20:02 | Fluoroscopy Report ---
FL shoulder RT min 2V CLINICAL HISTORY: CLOSED REDUCTION RIGHT SHOULDER COMPARISON STUDY: Right shoulder 03/20/2020. FLUOROSCOPY TIME: 20 seconds. FINDINGS: Single fluoroscopic spot images of the right shoulder demonstrates anatomic alignment statu s post reduction. Hill-Sachs impaction fracture is again noted. IMPRESSION: Fluoroscopy provided for reduction of the right shoulder dislocation. ACT 112: Negative or not required by law. Electronically signed by: Sanjeev Stallings M.D. 03/28/2020 8:00 PM
[2020-03-28] MEDS ORDERED: METOCLOPRAMIDE HCL INJ 5 MG/ML 2 ML VIAL IV PRN (20:34)
[2020-03-28] MEDS ORDERED: OXYCODONE HCL IR 5 MG TAB (IMMEDIATE RELEASE) PO PRN (20:34)
[2020-03-28] MEDS ORDERED: NALOXONE HCL 0.4 MG/1 ML VIAL/CARP IV PRN (20:34)
[2020-03-28] MEDS ORDERED: bisacodyL 10 MG SUPP PR PRN (20:34)
[2020-03-28] MEDS ORDERED: MAGNESIUM HYDROXIDE SUSP 30 ML UDC PO PRN (20:34)
[2020-03-28] MEDS ORDERED: WARFARIN SOD 6 MG TAB PO SCH (21:00)
[2020-03-28] MEDS ORDERED: SENNA 8.6 MG TAB PO SCH (21:00)
[2020-03-28] MEDS: DOCUSATE SODIUM 100 MG CAP PO SCH (21:43)
[2020-03-28] MEDS: METFORMIN HCL ER 500 MG TABCR PO SCH (21:43)
[2020-03-28] MEDS: KETOROLAC TROMETHAMINE 15 MG/ML VIAL IV SCH (21:45)
[2020-03-28] MEDS: FAMOTIDINE 20 MG TAB PO SCH (21:45)
[2020-03-29] MEDS: KETOROLAC TROMETHAMINE 15 MG/ML VIAL IV SCH (03:11)
[2020-03-29] MEDS ORDERED: LEVOTHYROXINE SODIUM 88 MCG TABLET PO SCH (06:30)
--- NOTE | 2020-03-29 06:40 | Orthopedic Progress Note ---
Date of Service March 29, 2020 Assessment & Plan (1) Anterior dislocation of right shoulder: Overall she is doing well. She can be up and ambulating with the nursing staff later this morning. She can be discharged home today on oral pain medications. She will follow-up with orthopedics in 3 weeks. Present on Admission?: Yes Subjective Janie was seen and examined at bedside this morning. Overall she is doing very well. She is not having much pain in the right shoulder. She was able to get some sleep last night. She has no complaints. Physical Exam Musculoskeletal: On physical examination of the right shoulder, she is wearing her sling as instructed. Her radial, median, and ulnar nerves are checked and intact at her wrist. Her axillary nerve was not checked yet. Results & Data ([facility]) Vital Signs (Past 12 Hours) Vital Signs Temp Pulse Pulse Resp BP Pulse Ox 03/29/20 02:36 37.2 C 51 L 16 107/67 95 03/28/20 23:15 36.6 C 53 L 18 111/69 91 03/28/20 22:12 36.8 C 56 L 17 91/53 L 93 03/28/20 21:24 37.1 C 48 L 17 103/61 95 03/28/20 20:49 36.8 C 53 L 17 142/55 H 99 03/28/20 20:15 37.1 C 55 L 16 102/68 98 03/28/20 20:10 50 L 14 107/62 99 03/28/20 20:00 36.4 C L 53 L 14 105/55 L 99 03/28/20 19:50 53 L 14 105/55 L 99 03/28/20 19:43 36.1 C L 57 L 20 109/58 L 98 PG Care Time/CCT Total # of Minutes Spent Total Time Spent with Patient: Total time spent is greater than 50% in coordination of care (as documented) at patient's floor/unit and/or counseling patient: Coding Level of Care Code None Diagnoses Anterior dislocation of right shoulder S43.014A Encounter type: initial encounter (1) Anterior dislocation of right shoulder Encounter type: initial encounter Qualified Code(s): S43.014A - Anterior dislocation of right humerus, initial encounter
--- NOTE | 2020-03-29 06:42 | Discharge Summary ---
Date of Service March 29, 2020 Admission HPI Per Admitting Provider Janie is a pleasant 64-year-old female who was mowing her grass earlier today. She tripped and fell, sustaining a right shoulder anterior dislocation. She came to the emergency room. The emergency room physician had several attempts to reduce her right shoulder but was unable to get it reduced. CT scan of the right shoulder did show a Hill-Sachs deformity with a slight impaction of the anterior glenoid. After failing multiple attempts at reduction, orthopedics was consulted for a closed reduction in the operating room. Principal Diagnosis Right shoulder dislocation Discharge Data Allergies Allergy/AdvReac Type Severity Reaction Status Date / Time No Known Allergies Allergy Unknown Verified 03/28/20 11:33 Consultations 03/28/20 16:50 ED Decision to Admit Stat Procedures Performed Operation Date: 03/28/20 18:30 Actual Procedures p Closed Reduction of Right Shoulder(Right) - Rigo Rust DO Ordered Studies 03/28/20 12:59 CT shoulder RT wo con Stat 03/28/20 18:30 FL fluoroscopy <1hr Routine FL shoulder RT min 2V Routine Hospital Course (1) Anterior dislocation of right shoulder: On March 28, 2020 Janie sustained an anterior dislocation of her right shoulder and came to the emergency room. After nearly 8 hours and multiple attempts at shoulder reduction in the emergency room, orthopedics was consulted. I took her to the operating room and did a closed reduction of her right shoulder later that night. She was then placed in an arm sling and transferred to the general orthopedic floors. The following day she was feeling well. She was not having much pain in the shoulder. She was able to get up and ambulate with the nursing staff. She was then discharged home on oral pain medications. She will follow-up with orthopedics in 3 weeks. Total Time Total Time Spent Total Time Spent (In Minutes): 20 Discharge Plan Discharge Items Patient Disposition: Home - Self-Care Reason For Visit: FALL - RT SHOULDER INJURY Discharge Diagnosis: Right shoulder dislocation Activity: As commented below Non-emergency contact: Surgeon Call non-emergency contact if: your wound has increased redness and your wound has increased drainage Follow-up/Referrals: Brice Ken MD [Primary Care Provider] - Diet: Regular Addtl Attending Provider Instructions: Stay in the right arm sling for up to 6 weeks. You may use your hand wrist and elbow while in the sling. Follow-up with [facility] orthopedics, Dr. Rust, in 3 weeks. Office phone number is [phone]. Please call to make an appointment. Pending Studies at Discharge: No Stand-Alone Forms: Anesthesia/Sedation, Adult, [facility], Smoking Cessation Medications and DC Order Prescriptions: New hydrocodone-acetaminophen [[place]] 5-325 mg tablet 1 tab PO Q6H PRN (Reason: pain) Qty: 20 RF: 0 Continued (DME) lancets [OneTouch Delica Lancets] 33 gauge misc See Dose Instructions .ROUTE .MEDSUPPLY Qty: 100 RF: 0 (DME) OneTouch Verio test strips strip See Dose Instructions .ROUTE .MEDSUPPLY Qty: 100 RF: 3 metformin 500 mg tablet extended release 24 hr 500 mg PO BID 90 Days Qty: 180 RF: 3 multivitamin Tablet 1 tab PO QAM RF: 0 cholecalciferol (vitamin D3) [Vitamin D3] 25 mcg (1,000 unit) Tablet 0 mcg PO QAM RF: 0 Glucosamine Chondroitin 550-30-1 mg Capsule 1 cap PO QAM RF: 0 Ranitidine 150mg Tablet 150 mg PO BID RF: 0 fluoxetine 40 mg capsule 40 mg PO QAM RF: 0 atorvastatin 20 mg tablet 20 mg PO QAM RF: 0 meloxicam 15 mg tablet 15 mg PO QAM RF: 0 lisinopril 20 mg tablet 20 mg PO QAM RF: 0 triamterene-hydrochlorothiazid 37.5-25 mg capsule 1 cap PO QAM RF: 0 levothyroxine 88 mcg tablet 88 mcg PO QAM RF: 0 warfarin 6 mg tablet 6 mg PO HS RF: 0 Discharge Orders: Discharge Order (Routine); Ordered 03/29/20 Ordered By: Rigo Rust Admission Data Admit Date/Time: 03/28/20 19:40 Attending Provider: Rigo Rust Admit Provider: Rigo Rust Primary Care Provider: Brice Ken Other Providers: Rigo Rsut Coding Level of Care Code D/C Day Management <30 mins Diagnoses Anterior dislocation of right shoulder S43.014A Encounter type: initial encounter
--- NOTE | 2020-03-29 07:57 | XRay Report ---
XR shoulder RT min 2V routine CLINICAL HISTORY: post reduction in PACU COMPARISON: CT of the right shoulder and right shoulder radiographs March 28, 2020. FINDINGS: Alignment of the right glenohumeral joint is anatomic post reduction. Note is again made o f a Hill Sachs and bony [place]. Osteoarthritis of the right acromioclavicular joint is noted. IMPRESSION: 1. Anatomic alignment of the right glenohumeral joint post reduction. 2. Redemonstration of a Hill-Sachs and bony [place]. ACT 112: Negative or not required by law. Electronically signed by: Ronak Hernandez M.D. 03/29/2020 7:55 AM
[2020-03-29] MEDS: METFORMIN HCL ER 500 MG TABCR PO SCH (08:14)
[2020-03-29] MEDS: DOCUSATE SODIUM 100 MG CAP PO SCH (08:16)
[2020-03-29] MEDS: FAMOTIDINE 20 MG TAB PO SCH (08:17)
[2020-03-29] MEDS ORDERED: TRIAMTERENE/HCTZ 37.5/25MG CAP PO SCH (09:00)
[2020-03-29] MEDS ORDERED: MULTIVITAMIN TAB PO SCH ×2 (09:00)
[2020-03-29] MEDS ORDERED: FLUOXETINE HCL 20 MG CAP PO SCH (09:00)
[2020-03-29] MEDS ORDERED: ATORVASTATIN 20 MG TAB PO SCH (09:00)
[2020-03-29] MEDS ORDERED: lisinopriL 20 MG TAB PO SCH (09:00)
[2020-03-29] MEDS ORDERED: NON-FORMULARY MEDICATION (Glucos Sul 2kcl-Msm-Chond-C-Mn [Glucosamine Chondroitin] 1 CAP) PO SCH (09:00)
[2020-03-29] MEDS ORDERED: MELOXICAM 7.5 MG TAB PO SCH (09:00)
--- NOTE | 2020-03-29 09:04 | Electrocardiogram Report ---
Test Reason : Blood Pressure : / mmHG Vent. Rate : 063 BPM Atrial Rate : 063 BPM P-R Int : 154 ms QRS Dur : 118 ms QT Int : 472 ms P-R-T Axes : 030 -28 067 degrees QTc Int : 483 ms Normal sinus rhythm Possible Old Septal infarct Abnormal ECG When compared with ECG of 02-OCT-2014 11:34, Criteria for Septal infarct is now Present (may be lead placment related) Otherwise no significant change Confirmed by Fabricio Paul ([id number]) on 03/29/2020 9:04:04 AM Referred By: REFERRED SELF Confirmed By:Fabricio Paul
== END 2020-03-29 09:42 | disposition home or self-care (01) | DRG 563 ==
LOC: ED 10:15 → OR 19:09 → 3E 19:40

== ENCOUNTER 2020-07-05 06:58 | Inpatient (IN) ==
--- NOTE | 2020-06-09 16:19 | PAT Medication Instructions ---
Medication Instructions Date of Service June 09, 2020 Home Medications Medication Instructions Recorded OneTouch Verio test strips #100 ea NS 07/02/19 metformin 500 mg tablet,extended 500 mg PO BID 90 Days #180 tab 02/09/20 release 24 hr fluoxetine 40 mg capsule 40 mg PO QAM #90 cap 04/29/20 meloxicam 15 mg tablet 15 mg PO QAM #90 tab 04/29/20 lisinopril 20 mg tablet 20 mg PO QAM #90 tab 06/03/20 metformin 500 mg tablet,extended release 24 hr 500 mg PO BID Glucosamine Chondroitin 1 cap PO QAM atorvastatin 20 mg PO QAM cholecalciferol (vitamin D3) [Vitamin D3] 0 mcg PO QAM levothyroxine 88 mcg PO QAM multivitamin 1 tab PO QAM triamterene-hydrochlorothiazid 1 cap PO QAM warfarin 6 mg PO HS fluoxetine 40 mg capsule 40 mg PO QAM meloxicam 15 mg tablet 15 mg PO QAM lisinopril 20 mg tablet 20 mg PO QAM ASK your surgeon for instructions meloxicam 15 mg tablet 15 mg PO QAM ASK your prescriber and surgeon warfarin 6 mg PO HS STOP taking 2 weeks before surgery Glucosamine Chondroitin 1 cap PO QAM DO NOT take the morning of surgery metformin 500 mg tablet,extended release 24 hr 500 mg PO BID cholecalciferol (vitamin D3) [Vitamin D3] 0 mcg PO QAM multivitamin 1 tab PO QAM triamterene-hydrochlorothiazid 1 cap PO QAM lisinopril 20 mg tablet 20 mg PO QAM Take morning of surgery With a small sip of water, OTHERWISE NOTHING TO EAT OR DRINK AFTER MIDNIGHT: atorvastatin 20 mg PO QAM levothyroxine 88 mcg PO QAM fluoxetine 40 mg capsule 40 mg PO QAM Take evening before surgery metformin 500 mg tablet,extended release 24 hr 500 mg PO BID Other Notes If you have any questions please call us at [phone] or [phone] or [phone] or [phone]
--- NOTE | 2020-06-11 11:02 | Anesthesiology Consultation ---
Date of Service June 11, 2020 Assessment & Plan (1) Encounter for pre-operative examination: COVID Status: As of 06/11 assessment, patient denies travel to endemic area, known exposure/sick contacts, or symptoms of COVID19. Patient instructed that they and their household members must follow strict social distancing guidelines, wear a mask in public and avoid travel for 14 days prior to surgery. Preoperative COVID19 testing to be completed prior to surgery per surgeon's a rrangements. Patient made aware to self-isolate as much as possible between COVID testing and surgery. Chart Review Chart Review: Acceptable Risk for Surgery and Patient seen in Pre Admission Testing Teaching & Discussion Instructed NPO after midnight before surgery, except medications with 15 cc of water. Medication instructions provided according to the PAT guidelines. History Surgery Operation Date: 07/05/20 13:00 Proposed Procedures p Right Reverse Total Shoulder Arthroplasty - Rigo Rust DO Height/Weight Height: 5 ft 8.5 in Weight: 104.9 kg Allergies Allergy/AdvReac Type Severity Reaction Status Date / Time No Known Allergies Allergy Unknown Verified 06/08/20 14:06 Medications Home Medications Medication Instructions Recorded Confirmed Last Taken OneTouch Verio test strips #100 ea NS 07/02/19 06/08/20 Unknown metformin 500 mg tablet,extended 500 mg PO BID 90 Days #180 tab 02/09/20 06/08/20 03/28/20 release 24 hr Glucosamine Chondroitin 1 cap PO QAM 03/28/20 06/08/20 03/28/20 atorvastatin 20 mg PO QAM 03/28/20 06/08/20 03/28/20 cholecalciferol (vitamin D3) 0 mcg PO QAM 03/28/20 06/08/20 03/28/20 [Vitamin D3] levothyroxine 88 mcg PO QAM 03/28/20 06/08/20 03/28/20 multivitamin 1 tab PO QAM 03/28/20 06/08/20 03/28/20 triamterene-hydrochlorothiazid 1 cap PO QAM 03/28/20 06/08/20 03/28/20 warfarin 6 mg PO HS 03/28/20 06/08/20 03/27/20 fluoxetine 40 mg capsule 40 mg PO QAM #90 cap 04/29/20 06/08/20 Unknown meloxicam 15 mg tablet 15 mg PO QAM #90 tab 04/29/20 06/08/20 Unknown lancets 33 gauge ea 05/13/20 06/08/20 Unknown lisinopril 20 mg tablet 20 mg PO QAM #90 tab 06/03/20 06/08/20 Unknown Past Medical History Medical History Anticoagulated on Coumadin 2/2 h/o DVT/PE Anxiety Depression Diverticular disease DM type 2 (diabetes mellitus, type 2) NIDDM Generalized osteoarthritis History of colon polyps History of DVT (deep vein thrombosis) 2001 lower extremity --> PE -- on coumadin - unk etiology History of pulmonary embolism 2001 with DVT HTN (hypertension) Hyperlipidemia Hypothyroidism Exercise / Class Metabolic Activity II 4-5 Yardwork/Stairs/Walk up hill (Denies CP or SOB with 1 FOS) Past Family History Family History Mother Skin cancer Diabetes COPD (chronic obstructive pulmonary disease) Hypertension Sister Skin cancer Diabetes Hypertension PONV (postoperative nausea and vomiting) Father Skin cancer Grandfather Cardiac disorder Brother Skin cancer Denies family history of Ovarian cancer Breast cancer Colorectal cancer Past Surgical History Surgical History History of appendectomy History of colonoscopy History of foot surgery History of left knee replacement History of right knee joint replacement History of tonsillectomy Status post incision and drainage Past Anesthesia History No Hx of Anesthesia Complications and No Family Hx of Anesthesia Complications (other than PONV) History of PONV No Hx of PONV and No Hx of Motion Sickness Social History Smoking Status: Never smoker Do You Dip or Chew Tobacco: No Hx Alcohol Use: No Hx Substance Use: No substance use type: does not use Review of Systems Pt denies any recent chest pain, shortness of breath, palpitations, cough, fever, URI, or uncontrolled acid reflux. Physical Exam Vital Signs BP: 110/72 P: 60bpm SPO2: 96% RA T: 98.2 F R: 16 ENMT Mouth: no dental restorations, no chipped teeth and no loose teeth Thyromental Distance: > or= 3.5 Finger Breadths Mallampati Class: II Neck normal visual inspection; neck extension not limited Respiratory normal respiratory effort Auscultation: lungs clear to auscultation bilaterally Cardiovascular Rate/Rhythm: regular rate and regular rhythm Heart Sounds: no murmur Extremities: no edema Testing Laboratory Results 06/11/20 11:12 06/11/20 11:12 PT 19.1 Seconds (9.0-12.0) H 06/11/20 11:12 INR 1.9 (0.9-1.1) H 06/11/20 11:12 APTT 39.3 Seconds (21.0-31.0) H 06/11/20 11:12 Hemoglobin A1c 6.1 % (4.5-5.6) H 06/11/20 11:12 Blood Type A Positive 06/11/20 11:12 Antibody Screen NEGATIVE 06/11/20 11:12 Electrocardiogram Date: 06/11/20 Findings: + SB @ (57bpm) Left axis deviation. Chest X-Ray Date: 06/11/20 Findings: + NAD
--- NOTE | 2020-06-11 11:42 | XRay Report ---
XR chest Pre-admission PA/Lat HISTORY: 65 years-old Female pat preoperative exam. No acute chest complaints COMPARISON: Chest and rib radiographs 03/28/2020 TECHNIQUE: PA and lateral views of the chest FINDINGS: Cardiac mediastinal and hilar silhouettes are within normal limits. There is no pneumothorax, pleural effusion, airspace consolidation or overt pulmonary edema. Minimal linear scarring/atelectasis of th e lateral left lung base. The bones appear grossly intact. IMPRESSION: No acute process. ACT 112: Negative or not required by law. The above report was generated using voice recognition software. It may contain grammatical, syntax o r spelling errors. Electronically signed by: Bry Brown M.D. 06/11/2020 11:41 AM
[2020-06-11 11:43] LABS: Basophils # (auto) 0.02 K/uL (0-0.2); Basophils % (auto) 0.3 %; Eosinophils # (auto) 0.07 K/uL (0-0.5); Eosinophils % (auto) 1.2 %; Hematocrit (blood only) 41.8 % (37-47); Hemoglobin 12.8 g/dL (12.0-16.0); Immature Granulocytes # (auto) 0.01 K/uL (0.00-0.02); Immature Granulocytes % (auto) 0.2 %; Lymphocytes % (auto) 26.5 %; Mean Corpuscular Hemoglobin 29.1 pg (25-34); Mean Corpuscular Hgb Conc 30.6 g/dL (32-36); Monocytes # (auto) 0.54 K/uL (0.11-0.59); Monocytes % (auto) 8.9 %; Neutrophils % (auto) 62.9 %; Platelet Count 272 K/uL (130-400); RDW Coefficient of Variation 13.9 % (11.5-14.5); RDW Standard Deviation 48.6 fL (36.4-46.3); White Blood Count 6.04 K/uL (4.8-10.8)
[2020-06-11 11:59] LABS: INR 1.9 (0.9-1.1); Partial Thromboplastin Ratio 1.4; Partial Thromboplastin Time 39.3 Seconds (21.0-31.0); Prothrombin Time 19.1 Seconds (9.0-12.0)
[2020-06-11 12:18] LABS: Estimated Average Glucose 128 mg/dl; Hemoglobin A1C 6.1 % (4.5-5.6)
--- NOTE | 2020-06-11 12:48 | Electrocardiogram Report ---
Test Reason : Blood Pressure : / mmHG Vent. Rate : 057 BPM Atrial Rate : 057 BPM P-R Int : 142 ms QRS Dur : 110 ms QT Int : 464 ms P-R-T Axes : 027 -34 028 degrees QTc Int : 451 ms Sinus bradycardia Left axis deviation Abnormal ECG When compared with ECG of 28-MAR-2020 15:35, T wave inversion now evident in Inferior leads Confirmed by Faisal Barnes ([id number]) on 06/11/2020 12:48:16 PM Referred By: Rigo Rust Confirmed By:Sylvain Barnes
[2020-06-11 13:39] LABS: BUN Creatinine Ratio 20.6 (10-20); Calcium 9.5 mg/dl (8.5-10.1); Est GFR (African American) 53.5; Est GFR (Non-African American) 46.1; Potassium 4.5 mmol/L (3.5-5.1)
--- NOTE | 2020-06-30 20:38 | History & Physical Report ---
Date of Service June 30, 2020 Assessment & Plan (1) Rotator cuff tear: We will proceed with a right reverse shoulder arthroplasty. Postoperatively she will be placed in a sling and kept overnight in the hospital for postoperative medical management. She plans to go to [facility] and [place] upon discharge. Present on Admission?: Yes History of Present Illness Chief Complaint: Rotator cuff arthropathy of the right shoulder Primary Care Provider: Faisal Ken MD Janie is a pleasant 65-year-old female who sustained a an anterior shoulder dislocation a couple of months ago. 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 After discussions in the office, we elected to proceed with a right reverse shoulder arthroplasty. Allergies Allergy/AdvReac Type Severity Reaction Status Date / Time No Known Allergies Allergy Unknown Verified 06/30/20 11:07 Home Medications Home Medications Medication Instructions Recorded Confirmed Type OneTouch Verio test strips #100 ea NS 07/02/19 06/30/20 Rx metformin 500 mg tablet,extended 500 mg PO BID 90 Days #180 tab 02/09/20 06/30/20 Rx release 24 hr cholecalciferol (vitamin D3) 0 mcg PO QAM 03/28/20 06/30/20 History [Vitamin D3] levothyroxine 88 mcg PO QAM 03/28/20 06/30/20 History multivitamin 1 tab PO QAM 03/28/20 06/30/20 History triamterene-hydrochlorothiazid 1 cap PO QAM 03/28/20 06/30/20 History warfarin 6 mg PO HS 03/28/20 06/28/20 History fluoxetine 40 mg capsule 40 mg PO QAM #90 cap 04/29/20 06/30/20 Rx lancets 33 gauge ea 05/13/20 06/30/20 History lisinopril 20 mg tablet 20 mg PO QAM #90 tab 06/03/20 06/30/20 Rx atorvastatin 20 mg tablet 20 mg PO QAM #90 tab 06/21/20 06/30/20 Rx meloxicam 20 mg PO DAILY 06/30/20 06/30/20 History Past Med/Surg History Medical History Anticoagulated on Coumadin 2/2 h/o DVT/PE Anxiety Depression Diverticular disease DM type 2 (diabetes mellitus, type 2) NIDDM Generalized osteoarthritis History of colon polyps History of DVT (deep vein thrombosis) 2001 lower extremity --> PE -- on coumadin - unk etiology History of pulmonary embolism 2001 with DVT HTN (hypertension) Hyperlipidemia Hypothyroidism Surgical History History of appendectomy History of colonoscopy History of foot surgery History of left knee replacement History of right knee joint replacement History of tonsillectomy Status post incision and drainage Family History Mother Skin cancer Diabetes COPD (chronic obstructive pulmonary disease) Hypertension Sister Skin cancer Diabetes Hypertension PONV (postoperative nausea and vomiting) Father Skin cancer Grandfather Cardiac disorder Brother Skin cancer Denies family history of Ovarian cancer Breast cancer Colorectal cancer Social History Smoking Status: Never smoker Second Hand Exposure: No; Hx Alcohol Use: No Hx Substance Use: No Preferred Language: Paraguayan Communication Ability: Effective Assembler Filters Required: No Beliefs That Will Affect Care: None marital status: Current Living Situation: Family Feels Safe at Home: Yes Assistive Devices: None Review of Systems Review of Systems: All systems reviewed & are unremarkable except as noted in HPI & below Physical Exam Constitutional: WD/WN, vitals as above Eyes: PERRL, conjunctivae normal, anicteric sclerae ENMT: external ear and nose normal, oropharynx normal Neck: trachea midline, no thyromegaly Respiratory: normal respiratory effort Cardiovascular: RRR, no murmur, no edema Gastrointestinal (Abdomen): normal bowel sounds, soft, nontender, no hepatosplenomegaly Musculoskeletal: Physical examination of the right shoulder reveals decreased range of motion and significant weakness. There is tenderness palpation along the anterior glenohumeral joint line. The right upper extremity is neurovascularly intact. Psychiatric: A+Ox3, euthymic affect Results & Data Results & Data ([facility]) Diagnostic Findings Radiographs of the right shoulder show some signs of osteoarthritis with blunting of the greater tuberosity and some superior migration of the humeral head on the glenoid. PG Care Time/CCT Total # of Minutes Spent Total Time Spent with Patient: Total time spent is greater than 50% [facility] (as documented) at patient's floor/unit and/or counseling patient: Coding Level of Care Code None Diagnoses Rotator cuff tear M75.100
[~2020-07-05 06:58] MED LIST changes: +ACETAMINOPHEN 500 MG TAB PO SCH; -ATOR-54 PO; +BUPIVACAINE 0.5 % 5 MG/1 ML PF 10ML VIAL ONE; +FAMOTIDINE 20 MG TAB PO SCH; +GABAPENTIN 300 MG CAP PO SCH; -LEVO100T7 PO; -LISI-461 PO; -LORA0.5T12 PO; +LR 15ML/HR IV SCH; +LR 60ML/HR IV SCH; -MELO15TA4 PO; -PARO1TAB27 PO; +ROPIVACAINE 0.5% HCL/PF 150 MG, BUPIVACAINE 0.5% MPF 30 ML, EPINEPHrine 30MG/30ML (OR U... INSTIL SCH; +TRANEXAMIC ACID 1,000 MG **IV Intra-op IV SCH; +TRANEXAMIC ACID 1,000 MG **IV Pre-op IV SCH; -TRIATAB3 PO; -WARF6TAB PO; -ZNTT/150 PO; +ceFAZolin 2000MG 2,000 MG/15 ML SYR IV SCH; +dexAMETHasone 4 MG TAB PO SCH
--- NOTE | 2020-07-05 07:22 | History & Physical Bridge Note ---
Date of Service July 05, 2020 History & Physical Bridge Note I have examined the patient, reviewed the History & Physical and in the interval since the performance of the History & Physical I have noted the following changes of clinical significance: no changes noted
[2020-07-05] MEDS ORDERED: fentaNYL citrate 100 MCG/2 ML VIAL ONE (07:41)
[2020-07-05] MEDS ORDERED: MIDAZOLAM HCL 1 MG/ML 2ML VIAL ONE (07:41)
[2020-07-05 08:05] LABS: Partial Thromboplastin Time 27.5 Seconds (21.0-31.0); Prothrombin Time 10.3 Seconds (9.0-12.0)
[2020-07-05] MEDS ORDERED: ATROPINE SULFATE 0.1 MG/ML 10ML SYR IV PRN (08:30)
[2020-07-05] MEDS ORDERED: ePHEDrine sulfate 50 MG/ML AMP IV PRN (08:30)
[2020-07-05] MEDS ORDERED: fentaNYL citrate 100 MCG/2 ML VIAL IV PRN (08:30)
[2020-07-05] MEDS ORDERED: ONDANSETRON INJ 2 MG/ML 2 ML VIAL IV PRN ×2 (08:30→12:29)
[2020-07-05] MEDS ORDERED: GLYCOPYRROLATE 0.2 MG/ML VIAL ONE (08:47)
[2020-07-05] MEDS ORDERED: DEXAMETHASONE SOD INJ 4 MG/ML VIAL ONE (08:47)
[2020-07-05] MEDS ORDERED: PROPOFOL IV EMULSION 10 MG/ML 20 ML VIAL IV ONE (08:47)
[2020-07-05] MEDS ORDERED: ONDANSETRON INJ 2 MG/ML 2 ML VIAL ONE (08:47)
[2020-07-05] MEDS ORDERED: LIDOCAINE HCL 2% 2 ML VIAL/AMP(20MG/ML) INFIL ONE (08:47)
[2020-07-05] MEDS ORDERED: ORTHO JOINT ANESTHETIC ONE (09:11)
[2020-07-05] MEDS ORDERED: ePHEDrine sulfate 50 MG/ML SYR ONE (09:58)
--- NOTE | 2020-07-05 10:46 | Operative Report ---
PG Post Operative Report Pre & Post Diagnosis Operation Date: 07/05/20 09:05 Pre-Op Diagnosis: Right Shoulder dislocation with femoral head deficiency, massive rotator cuff tear, and biceps tendinopathy Post-Op Diagnosis: Right Shoulder dislocation with femoral head deficiency, massive rotator cuff tear, and biceps tendinopathy I identified the patient and participated in the time-out.: Yes Procedure Operation Date: 07/05/20 09:05 Actual Procedures p Right Reverse Total Shoulder Arthroplasty with open biceps tenodesis as a distinct and separate procedure (modifier 59) (Right) - Rigo Rust DO Surgeon Rigo Rust, Secretary To The Vice President Rigo Atkins PAC Estimated Blood Loss 200 Findings Consistent with Post-Op Diagnosis Specimens Right humeral head Complications none Disposition Disposition: Recovery Room Indications Janie is a pleasant 65-year-old female who fell and dislocated her right shoulder a couple months ago. She had to go to the operating room to have it reduced. She had a very large Hill-Sachs deficiency. MRI showed a massive retracted rotator cuff tear and some arthritis. After failing conservative treatment, she elected to proceed with a right reverse shoulder arthroplasty. Description of Procedure A CPT code modifier 59: The long head of the biceps tendon was enlarged and inflamed consistent with tendinopathy. A tenodesis was opted. This was a separate and distinct portion of the procedure. For these reasons, a CPT code modifier 59 will be added to this case. Implants used: I used a [employer]omet Comprehensive reverse total shoulder arthroplasty system with a size 13 press fit micro humeral stem, a +6 humeral tray and a standard humeral bearing, a 25 mm small augmented baseplate with a 6.5 mm central screw and superior and inferior locking screws, and a size 40 mm eccentric glenosphere. Janie arrived at [facility] for the above procedure. She was seen in the preoperative holding area and the operative extremity was identified and signed. She was given a preoperative antibiotic, TXA, and an interscalene nerve block. She was taken back to the operating room, laid on table in supine position, and put under general anesthesia. She was then put into the beachchair position. The shoulder was then prepped and draped in sterile fashion. A timeout was done and the patient and the operative extremity was properly identified. A deltopectoral approach was used. Dissection was taken down through the fascia and the deltoid was retracted laterally and the conjoined tendon was retracted medially. The anterior shoulder was exposed. The biceps groove was opened up and the biceps tendon was examined extensively. The biceps tendon demonstrated enlargement and inflammatory changes consistent with longstanding inflammation in the context of osteoarthritis and cuff arthropathy. The long head of the biceps tendon was then tenodesed to the upper border of the pectoralis major. This was a separate and distinct portion of the procedure. The subscapularis was then directly released off the lesser tuberosity with a peel technique. The inferior capsule was released and the humeral head was dislocated. A canal finding reamer was sent down the center of the humeral canal. Sequential reaming up to a size 13 reamer was done. Off that reamer, a proximal humeral resection guide was placed. The proximal humerus was resected at 135 of inclination and 25 of retroversion. Osteophytes were then removed and the glenoid was exposed. Time was spent doing a complete capsular and labral release. The glenoid guide was then placed in the inferior aspect of the glenoid. A 3.2 mm Steinmann pin was then placed into the glenoid vault at 10 of inclination. The glenoid baseplate was then reamed. The final size 25 mm small augment baseplate was then impacted in the place. A 6.5 mm central screw was then placed followed by superior and inferior locking screws. A 40 mm eccentric glenosphere was then impacted into place. Surrounding soft tissues were then injected with 100 cc an orthopedic pain control cocktail. The proximal humerus was then exposed. Sequential broaching of the humerus up to a size 13 broach was done. Off that broach a +6 humeral tray was trialed. The shoulder was then reduced, brought through a full range of motion, and felt to be stable. The shoulder was then dislocated and the broach was removed. The final size 13 micro press-fit humeral stem was then impacted into place. A standard humeral bearing was then snapped onto a +6 humeral tray. The humeral tray was then impacted onto the humeral stem. The shoulder was once again reduced, brought through a full range of motion, and felt to be stable. The subscapularis was then tenodesed back to the lesser tuberosity with transosseous FiberWire sutures and side to side sutures with the arm in 45 of external rotation. A dilute betadyne lavage was then done for 3 minutes. The joint was then irrigated with normal saline solution. Hemostasis was obtained. The interval was closed with 2-0 Vicryl suture. The skin was then closed with 2-0 Vicryl and lyndsey. A Silverlon dressing was placed and the arm was rested in a regular arm sling. She was then extubated and transferred to a hospital bed. She taken to the postanesthesia care unit in stable condition. She tolerated the procedure well. Rigo Atkins PA-C, was present for the entire procedure. He was critical for patient positioning, prepping, draping, retraction exposure, wound closure and application of sterile dressing. I attest to the content of the Intraoperative Record and any orders documented therein. Any exceptions are noted below.
--- NOTE | 2020-07-05 11:29 | XRay Report ---
XR shoulder RT min 2V routine CLINICAL HISTORY: Post shoulder surgery COMPARISON: Right shoulder radiographs March 28, 2020. MRI of the right shoulder April 23, 2020. FINDINGS: Alignment of the reverse total right shoulder arthroplasty is anatomic. No fracture or une xpected radiopaque foreign bodies noted. There are skin lyndsey. IMPRESSION: Expected findings following reverse total right shoulder arthroplasty. ACT 112: Negative or not required by law. Electronically signed by: Ronak Hernandez M.D. 07/05/2020 11:27 AM
--- NOTE | 2020-07-05 11:55 | Anesthesiology Progress Note ---
Date of Service July 05, 2020 Anesthesia Post Procedure Vital Signs Vital Signs: Temp Pulse Pulse Resp BP Pulse Ox 07/05/20 11:45 74 19 115/70 96 07/05/20 11:35 97.7 F 77 22 112/73 94 07/05/20 11:25 76 21 116/63 100 07/05/20 11:15 78 17 118/77 100 07/05/20 11:06 98.1 F 80 14 119/75 100 07/05/20 09:14 60 18 120/51 L 99 07/05/20 09:08 61 18 99 07/05/20 09:03 130/80 07/05/20 09:02 62 20 99 07/05/20 08:56 64 20 132/80 99 07/05/20 08:50 60 20 129/80 99 07/05/20 08:45 59 L 18 124/77 100 07/05/20 07:51 98.2 F 65 18 132/80 94 Pain Intensity Bilateral Shoulder: Pain Intensity: 2 Transfer of Care Handoff Completed per policy Notes Mental Status: alert / awake / arousable and participated in evaluation Patient Amnestic to Procedure: Yes Nausea / Vomiting: adequately controlled Pain: adequately controlled Airway Patency, RR, SpO2: stable & adequate BP & HR: stable & adequate Hydration State: stable & adequate Anesthetic Complications: no major complications apparent and Pt Satisfied with anesthetic care
[2020-07-05] MEDS: SODIUM CHLORIDE 0.9% 1000ML 1,000 ML IV SCH ×2 (12:10→21:59)
[2020-07-05] MEDS ORDERED: MAGNESIUM HYDROXIDE SUSP 30 ML UDC PO PRN (12:29)
[2020-07-05] MEDS ORDERED: METOCLOPRAMIDE HCL INJ 5 MG/ML 2 ML VIAL IV PRN (12:29)
[2020-07-05] MEDS ORDERED: oxyCODONE HCL IR 5 MG TAB (IMMEDIATE RELEASE) PO PRN (12:29)
[2020-07-05] MEDS ORDERED: HYDROmorphone INJ 0.5 MG/0.5 ML SYR IV PRN (12:29)
[2020-07-05] MEDS ORDERED: bisacodyL 10 MG SUPP PR PRN (12:29)
[2020-07-05] MEDS ORDERED: NALOXONE HCL 0.4 MG/1 ML VIAL/CARP IV PRN (12:29)
[2020-07-05] MEDS ORDERED: PHARMACY GLYCEMIC MGMT CONSULT PRN (12:42)
--- NOTE | 2020-07-05 12:53 | Pharmacy Report ---
Glycemic Control Consultation - Date of Service July 05, 2020 - Scope Scope: Glycemic Pharmacist consulted for glycemic control and to write orders per [facility] inpatient glycemic control protocol. - Objective Weight: 103.51 kg Accuchecks BSG (last 24hrs): 07/05/20 07/05/20 07:19 11:08 POC Glucose 99 137 H HbA1c: Hemoglobin A1c 6.1 % (4.5-5.6) H 06/11/20 11:12 - Recent Pertinent Medications Outpatient Anti-diabetic Regimen: * Metformin 500 mg PO BIDM * A1c = 6.1% (06/11/2020) Risk Factors for Insulin Resistance: * Steroids: * Dexamethasone 8 mg PO pre-op x 1 * Infection: * Post-op Ancef x 2 * IVF: * NSS at 100 cc/hr * Recent Surgery: * POD #0 s/p R TSA * Diet: * T2DM - Assessment & Plan Assessment & Plan: ASSESSMENT: * 65 yo F who is POD #0 s/p right reverse total shoulder arthroplasty. Pharmacy is consulted for inpatient glycemic management. Patient is a well-controlled type 2 diabetic on metformin monotherapy as an outpatient. * Pre-operative BSG was 99 mg/dL. Post-operative BSG was 137 mg/dL. * Given pre-operative steroids and stress of surgery will give patient a one time dose of NPH at ~ 0.2 units/kg. Will start Novolog based on weight and stress of 2. PLAN FOR INPATIENT GLYCEMIC CONTROL: * Holding outpatient oral diabetes medications * Basal insulin * NPH 20 units SQ x 1 * Bolus insulin * NovoLog per scale ACHS or Q6hrs while NPO * Goal Range: Low 110 mg/dL - High 140 mg/dL * Correction Factor: 25 mg/dL/unit * Nutritional / Prandial insulin per carb ratio of 1 unit per 8 grams CHO consumed * Please note that the plan above was derived based on current level of insulin resistance and hospital stress. These recommendations are appropriate for inpatient admission only. Plan of care upon discharge will need to be reassessed to avoid potential outpatient hypo/hyperglycemia. Thank you.
[2020-07-05] MEDS ORDERED: NovoLIN-N (NPH) PER UNIT CHARGE SQ ONE (13:00)
[2020-07-05] MEDS: ACETAMINOPHEN 500 MG TAB PO SCH ×2 (13:57→21:58)
[2020-07-05] MEDS: INSULIN ASPART 100 UNITS/ML 3 ML PEN SC SCH ×3 (14:01→20:38)
[2020-07-05] MEDS: ceFAZolin 2000MG 2,000 MG/15 ML SYR IV SCH (17:51)
[2020-07-05] MEDS: KETOROLAC TROMETHAMINE 15 MG/ML VIAL IV SCH (17:51)
[2020-07-05] MEDS: DOCUSATE SODIUM 100 MG CAP PO SCH (20:22)
[2020-07-05] MEDS ORDERED: WARFARIN SOD 6 MG TAB PO SCH (21:00)
[2020-07-05] MEDS ORDERED: SENNA 8.6 MG TAB PO SCH (21:00)
[2020-07-06] MEDS: ceFAZolin 2000MG 2,000 MG/15 ML SYR IV SCH (01:06)
[2020-07-06] MEDS: KETOROLAC TROMETHAMINE 15 MG/ML VIAL IV SCH ×3 (01:07→11:20)
[2020-07-06] MEDS: ACETAMINOPHEN 500 MG TAB PO SCH (05:24)
[2020-07-06 06:15] LABS: Hematocrit (blood only) 35.8 % (37-47); Hemoglobin 11.2 g/dL (12.0-16.0); Immature Granulocytes # (auto) 0.02 K/uL (0.00-0.02); Immature Granulocytes % (auto) 0.1 %; Lymphocytes # (auto) 1.17 K/uL (1.2-3.4); Lymphocytes % (auto) 8.7 %; Mean Corpuscular Hemoglobin 29.3 pg (25-34); Mean Corpuscular Hgb Conc 31.3 g/dL (32-36); Mean Corpuscular Volume 93.7 fL (80-100); Mean Platelet Volume 9.9 fL (7.4-10.4); Monocytes # (auto) 0.72 K/uL (0.11-0.59); Monocytes % (auto) 5.4 %; Neutrophils % (auto) 85.8 %; Platelet Count 252 K/uL (130-400); RDW Coefficient of Variation 13.7 % (11.5-14.5); RDW Standard Deviation 46.8 fL (36.4-46.3); Red Blood Count 3.82 M/uL (4.2-5.4); White Blood Count 13.41 K/uL (4.8-10.8)
[2020-07-06 06:24] LABS: Prothrombin Time 10.3 Seconds (9.0-12.0)
[2020-07-06] MEDS ORDERED: LEVOTHYROXINE SODIUM 88 MCG TABLET PO SCH (06:30)
[2020-07-06 06:48] LABS: BUN Creatinine Ratio 17.4 (10-20); Calcium 8.9 mg/dl (8.5-10.1); Creatinine Clr Calc Pharmacy 54.5 ml/min; Est GFR (Non-African American) 43.1
--- NOTE | 2020-07-06 07:01 | Orthopedic Progress Note ---
Date of Service July 06, 2020 Assessment & Plan (1) Status post reverse arthroplasty of right shoulder: Overall she is doing well. She denies any much pain in the right shoulder. She will be seen by physical therapy today for ambulation and range of motion exercises. She can be discharged home later today. She will follow- up with orthopedics in 2 weeks. Present on Admission?: No Admission and Anticipated Discharge Date Admission Date: July 05, 2020 Dennis Lima was seen and examined at bedside this morning. Overall she is doing very well. She is not having any pain in the right shoulder. She was able to get some sleep. She has no complaints. Physical Exam Musculoskeletal: On physical examination of the right shoulder, the dressing is clean and dry. She is wearing her sling as instructed. Her radial, median, and ulnar nerves are checked and intact at her wrist. Her axillary nerve was not checked yet. Results & Data ([facility]) Vital Signs (Past 12 Hours) Vital Signs Temp Pulse Resp BP Pulse Ox 07/06/20 03:03 36.5 C 50 L 16 121/75 92 07/05/20 23:12 36.4 C L 53 L 16 90/57 L 92 07/05/20 20:10 36.4 C L 61 16 109/69 94 Laboratory Results H & H 06/11/20 07/06/20 Range/Units 11:12 05:10 Hgb 12.8 11.2 L (12.0-16.0) g/dL Hct 41.8 35.8 L (37-47) % Coagulation 06/11/20 07/05/20 07/06/20 Range/Units 11:12 07:27 05:10 INR 1.9 H 1.0 1.0 (0.9-1.1) Diagnostic Findings Postoperative x-rays of the right shoulder show the prosthesis to be in anatomic alignment without any evidence of fracture, dislocation, or loosening. PG Care Time/CCT Total # of Minutes Spent Total Time Spent with Patient: Total time spent is greater than 50% in coordination of care (as documented) at patient's floor/unit and/or counseling patient: Coding Level of Care Code None Diagnoses Status post reverse arthroplasty of right shoulder Z96.611
--- NOTE | 2020-07-06 07:02 | Discharge Summary ---
Date of Service July 06, 2020 Admission HPI Per Admitting Provider Janie is a pleasant 65-year-old female who sustained a an anterior shoulder dislocation a couple of months ago. 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 After discussions in the office, we elected to proceed with a right reverse shoulder arthroplasty. Principal Diagnosis Right reverse shoulder replacement Discharge Data Allergies Allergy/AdvReac Type Severity Reaction Status Date / Time No Known Allergies Allergy Unknown Verified 07/05/20 07:38 Consultations 07/05/20 12:29 Consult Case Management - Discharge Planning Routine Procedures Performed Operation Date: 07/05/20 09:05 Actual Procedures p Right Reverse Total Shoulder Arthroplasty(Right) - Rigo Rust DO Ordered Studies 07/05/20 05:00 US - OR guided needle placemen Routine Hospital Course (1) Status post reverse arthroplasty of right shoulder: On July 05, 2020 Janie arrived at [facility] and underwent a right reverse shoulder arthroplasty without complication. She had a general anesthetic and a right interscalene nerve block. Postoperatively she was placed in a sling and transferred to the general orthopedic floors. Her hospital course was uneventful. On postop day #1 her H&H was stable and her pain was well controlled. She was able to participate well with physical therapy doing ambulation and range of motion exercises. She was then discharged home. She will follow-up with orthopedics in 2 weeks. Total Time Total Time Spent Total Time Spent (In Minutes): 20 Discharge Plan Discharge Items Patient Disposition: Home - Home Health Services Reason For Visit: Right Shoulder Degenerative Joint Disease Discharge Diagnosis: Right reverse shoulder replacement Activity: As commented below Non-emergency contact: Surgeon Call non-emergency contact if: your wound has increased redness and your wound has increased drainage Follow-up/Referrals: Brice Ken MD [Primary Care Provider] - Diet: Carb Consistent or DM2 Addtl Attending Provider Instructions: Activity and Therapy Recommendations: * If you are using [facility] then therapy will be provided at your home until they feel you have accomplished all of your goals. * If you are using [facility] then Physical Therapy will be provided until they feel you are ready to start Outpatient Physical Therapy. * If you are not using home therapy then Outpatient Physical Therapy should start about 3-5 days from your day of surgery. Therapy will last about 8-12 weeks * Wear your sling for 3 weeks, unless otherwise instructed. You may remove your sling to shower and to dress, but otherwise, you should be in your sling at all times, including while sleeping * The shoulder replacement is very stable and you can use your hand while in the sling * You were shown a series of exercises in the hospital. Do these exercises daily including the exercises you were shown in physical therapy. Medications: * Narcotic You will likely be sent home from the hospital with a prescription for the narcotic pain medication that worked best throughout your stay. * Other medications may be prescribed for specific circumstances. If you have any questions, please call the office at . * Resume previous home medications unless otherwise instructed Dressing Care: Leave the Silverlon dressing in place for 7 days. After 7 days you may remove the dressing. If the incision is not draining then you may leave the lyndsey open to air. If there is a little bit of drainage or if the lyndsey are getting stuck on your clothing then cover the incision with a dry dressing. The lyndsey will be removed at your 2 week follow-up appointment. Showering: You may shower with the Silverlon dressing in place. Do not let the shower spray hit the dressing directly. Pat the Silverlon dressing dry. If the dressing becomes wet underneath, then simply remove the dressing. Keep the incision dry until you are 7 days out from the day of surgery. After 7 days you may remove the Silverlon dressing and shower with the lyndsey exposed. Let soapy water run over the lyndsey and pat them dry. Do not scrub or soak the incision. Things To Watch For: * Drainage from the incision site that occurs more than one week after your surgery. * Increased redness at the incision site. * Fever above 102 degrees Fahrenheit. * Unusual chest pain or shortness of breath. * Call [facility] at with any of the above problems Follow-Up Visit: Follow-up with Dr. Rust's PA (Rigo Atkins) 2-3 weeks after your day of surgery. He will remove your lyndsey and answer any questions. If you have any additional questions or concerns, Dr Rust is usually in the office at the same time and will be available An appointment was probably scheduled when you signed-up for surgery in the office. If you have any questions call More detailed instructions as well as Frequently Asked Questions were provided in a folder by our office when you signed-up for surgery. Please review these instructions when you get home. If you have any further questions or concerns, please feel free to call the office at [phone] Pending Studies at Discharge: No Stand-Alone Forms: My [facility] [employer], Smoking Cessation Medications and DC Order Prescriptions: New oxycodone 5 mg Tablet 5 mg PO Q4H PRN (Reason: pain) Qty: 30 RF: 0 Continued (DME) OneTouch Verio test strips strip See Dose Instructions .ROUTE .MEDSUPPLY Qty: 100 RF: 3 metformin 500 mg tablet extended release 24 hr 500 mg PO BID 90 Days Qty: 180 RF: 3 fluoxetine 40 mg capsule 40 mg PO QAM Qty: 90 RF: 3 lisinopril 20 mg tablet 20 mg PO QAM Qty: 90 RF: 3 atorvastatin 20 mg tablet 20 mg PO QAM Qty: 90 RF: 3 (DME) lancets [OneTouch Delica Lancets] 33 gauge misc See Rx Instructions .ROUTE .MEDSUPPLY RF: 0 meloxicam 20 mg PO DAILY RF: 0 multivitamin Tablet 1 tab PO QAM RF: 0 cholecalciferol (vitamin D3) [Vitamin D3] 25 mcg (1,000 unit) Tablet 0 mcg PO QAM RF: 0 triamterene-hydrochlorothiazid 37.5-25 mg capsule 1 cap PO QAM RF: 0 levothyroxine 88 mcg tablet 88 mcg PO QAM RF: 0 warfarin 6 mg tablet 6 mg PO HS RF: 0 Discharge Orders: Discharge Order (Routine); Ordered 07/06/20 Ordered By: Rigo Cruz/Other Patient Handouts: Managing Type 2 Diabetes, Managing Diabetes: The A1C Test Admission Data Admit Date/Time: 07/05/20 11:07 Attending Provider: Rigo Rust Admit Provider: Rigo Rust Primary Care Provider: Brice Ken Coding Level of Care Code D/C Day Management <30 mins Diagnoses Status post reverse arthroplasty of right shoulder Z96.611
[2020-07-06] MEDS: DOCUSATE SODIUM 100 MG CAP PO SCH (08:45)
[2020-07-06] MEDS: INSULIN ASPART 100 UNITS/ML 3 ML PEN SC SCH (08:47)
[2020-07-06] MEDS ORDERED: lisinopril 20 MG TAB PO SCH (09:00)
[2020-07-06] MEDS ORDERED: MULTIVITAMIN TAB PO SCH (09:00)
[2020-07-06] MEDS ORDERED: ATORVASTATIN 20 MG TAB PO SCH (09:00)
[2020-07-06] MEDS ORDERED: TRIAMTERENE/HCTZ 37.5/25MG CAP PO SCH (09:00)
[2020-07-06] MEDS ORDERED: FLUoxetine HCL 20 MG CAP PO SCH (09:00)
== END 2020-07-06 12:10 | disposition home health service (06) | DRG 483 ==
LOC: ASU 06:58 → 3E 11:07